=== PATIENT | male | born 1955 | race Caucasian/White ===

== ENCOUNTER 2021-03-01 11:37 | Inpatient (IN) | payer BC ==
[~2021-03-01] VITALS: Ht 182.9 cm; Wt 128.0 kg
[2021-03-01] MEDS ORDERED: CARV25TA PO (12:26)
[2021-03-01] MEDS ORDERED: MECL-149 PO (12:26)
[2021-03-01] MEDS ORDERED: ACHD5005 PO (12:26)
[2021-03-01] MEDS ORDERED: TRAM50TA3 PO (12:26)
[2021-03-01] MEDS ORDERED: ACET325T38 PO (12:26)
[2021-03-01] MEDS ORDERED: TMSL.4C PO (12:26)
[2021-03-01] MEDS ORDERED: LISI10TA25 PO (12:26)
[2021-03-01] MEDS ORDERED: HEPA500018 IJ (12:26)
[2021-03-01] MEDS ORDERED: AMLO-251 PO (12:26)
[2021-03-01 14:38] VITALS: BP 138/75
--- NOTE | 2021-03-01 15:42 | Progress Note ---
[facility] 03/01/21 1542: Progress Note CC: S/P Brain Bleed HPI: 65 yo male who is non-compliant with his HTN medications, presented to the [facility] ED for violent vomiting, and headache that had been lasting for 3 days. Patient was admitted to the hospital on Feb 21, and was discharged today, Mar 01. Patient reported that he did not receive any surgical intervention and was medically managed. Stated he has not had a bowel movement in over a week. Otherwise, patient reports feeling well, with no complaints. Denies fevers, chills, nausea, or vomiting PMH: HTN (non-compliant), Atrial Fibrillation PSH:.Tonsillectomy, Hemorrhoidectomy ALL: None Home Meds: Tylenol, Amlodipine, Carvedilol, Heparin, Hydrocodone-acetaminophen, lisinopril, Meclizine, Tamsulosin, Tramadol SH: Denies smoking, and recreational drugs, rarely drinks alcohol. 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 Stated he has been working since he was 13 yo. FH: Father - [place], Stroke. Mother - Lung cancer ROS: GENERAL: [place] Fevers, chills HEENT: Denies eye pain, ear pain RESP: denies Shortness of breath or cough HEART: [place] chest pain or palpitation ABDOMEN: Constipation, Denies abdominal pain, nausea, or vomiting EXTREMITIES: No calf pain or numbness EXAM: GENERAL: The patient is well-developed, well-nourished, in no acute distress. Obese HEENT: Normocephalic, atraumatic. Pupils are equal, round and reactive to light. Oropharynx is clear. NECK: Supple, with no lymphadenopathy. LUNGS: Clear to auscultation bilaterally. HEART: Regular rate and rhythm. ABDOMEN: Soft, nontender, nondistended. EXTREMITIES: Non-tender calves, no edema Assessment: S/P Brain bleed Constipation HTN Atrial fibrillation Plan Monitor BP (goal <140/<80) Continue BP medication Continue Heparin for Afib Miralax for constipation In Patient Rehab therapy Protocol Blood Sugars goal <180 CRYSTAL WEAVER DO 03/02/21 0544: Supervisory-Addendum Brief Verification & Attestation Participated in pt care: history, MDM, physical Personally performed: exam, history, MDM, supervision of care Care discussed with: Medical Student Procedures: n/a Results interpretation: Verified all documentation Verification and Attestation of Medical Student E/M Service A medical student performed and documented this service in my presence. I reviewed and verified all information documented by the medical student and made modifications to such information, when appropriate. I personally performed the physical exam and medical decision making. Crystal Weaver, Mar 02, 2021,05:44 [facility] Mar 01, 2021 15:42 CRYSTAL WEAVER DO Mar 02, 2021 05:44
--- NOTE | 2021-03-01 15:49 | Physical Therapy Evaluation ---
PT Evaluation-General Medical Diagnosis Admission Date Mar 01, 2021 at 14:53 Medical Diagnosis: ICH Onset Date: Feb 21, 2021 Therapy Diagnosis Therapy Diagnosis: impaired balance, mobility Precautions Precautions/Isolations: Fall Prevention, Standard Precautions Referral Physician: Crystal Armas DO Reason for Referral: Evaluation/Treatment Medical History Reviewed History: Yes Social History Home: Apartment Current Living Status: Alone Entry Into Home: Level Entry Prior Prior Level of Function SCALE: Activities may be completed with or without assistive devices. 6-Rstyjofcep-wodnexs completes the activity by him/herself with no assistance from a helper. 5-Set-up or Clean-up Assistance-helper sets up or cleans up; patient completes activity. [place] assists only prior to or following the activity. 4-Supervision or Touching Assistance-helper provides verbal cues and/or touching/steadying and/or contact guard assistance as patient completes activity. Assistance may be provided throughout the activity or intermittently. 3-Partial/Moderate Assistance-helper does LESS THAN HALF the effort. [place] lifts, holds or supports trunk or limbs, but provides less than half the effort. 2-Substantial/Maximal Assistance-helper does MORE THAN HALF the effort. [place] lifts or holds trunk or limbs and provides more than half the effort. 2-Yaondzbgr-pvbeuu does ALL the effort. Patient does none of the effort to complete the activity. Or, the assistance of 2 or more helpers is required for the patient to complete the activity. If activity was not attempted, code reason: 7-Patient Refused. 9-Not Applicable-not attempted and the patient did not perform the activity before the current illness, exacerbation or injury. 10-Not Attempted due to Environmental Limitations-(lack of equipment, weather restraints, etc.). 88-Not Attempted due to Medical Conditions or Safety Concerns. Bed Mobility: 6 Transfers (B,C,W/C): 6 Gait: 6 Stairs: 6 Indoor Mobility (Ambulation): Independent Stairs: Independent PT Evaluation-Current Subjective Patient in family vehicle pre tx, agrees to PT, has no pain currently but states that he now commonly has headaches. Will be co-treating with OT for part of tx due to poor patient mobility, impaired vision, coordinate UE and LE during activity, safety and reduce risk of falls. Pt/Family Goals to be independent at home Objective Patient Orientation: Person, Place, Situation ROM/Strength ROM Lower Extremities WNL Strength Lower Extremities grossly 5/5 BLE Neuromuscular (Tone, Coordination, Reflexes) Patient has impaired peripheral vision on the left side, good tracking, patient states he has a lot of blurry vision Sensory Vision: Hearing: Impaired Sensation Right Lower Extremit: Intact Sensation Left Lower Extremity: Intact Transfers Roll Left & Right (QC): 6 Sit to Lying (QC): 6 Lying to Sitting/Side of Bed(Q: 6 Sit to Stand (QC): 4 Chair/Hyb-rg-Rtyow Xfer(QC): 4 Toilet Transfer (QC): 4 Car Transfer (QC): 4 Patient performs rolling and supine <-> sit with independence, sit <-> stand and transfers with CGA, car transfer CGA. Occasional cues for safety and positioning due to visual impairments Gait Does the Patient Walk?: Yes Mode of Locomotion: Walk Anticipated Mode of Locomotion: Walk Walk 10 feet (QC): 4 Walk 50 ft with 2 Turns(QC): 4 Walk 150 ft (QC): 4 Walking 10ft/uneven surface-QC: 4 Distance: 300', 120' Gait Assistive Device: Cane Single Point Comments/Gait Description Patient can ambulate 300' with a single point cane with CGA (including 50' with at least 2 turns of 90 degrees and 10' over an uneven surface), occasional cues for obstacles on the left side Wheelchair Training Does the Pt Use a Wheelchair?: No Wheel 50 ft with 2 turns (QC): 9 Wheel 150 ft (QC): 9 Stairs #of Steps: 4 1 Step (curb) (QC): 4 4 Steps (QC): 4 12 Steps (QC): 88 Patient can go up and down 4 steps using 2 handrails with CGA, cues for safety and foot placement Balance Sitting Static: Normal Sitting Dynamic: Normal Standing Static: Good Standing Dynamic: Fair Picking up an Object (QC): 4 Special Test Comments Patient scored a 46/56 on the Reeves Balance Scale. Treatment PT performed bed mobility and transfers, ambulation, stair training, gait training, positioning and safety during dressing and ADL's, balance during cone activity (balance activity with cones while standing on airex), OT performed ADL's, dressing, balance activity, UE positioning and safety during activity. Assessment/Needs Patient in recliner post tx with nurse call, phone, tray, all needs met. Patient has impaired balance and mobility. He is CGA for transfers and ambulation using a SPC. Rehab Potential: Fair PT Short Term Goals Short Term Goals Time Frame: Mar 08, 2021 Roll Left & Right: 6 Sit to lyin Lying to sitting on side of be: 6 Sit to stand: 4 (SBA) Chair/hys-ks-yrogi transfer: 4 (SBA) Walk 10 feet: 4 (SBA) Walk 50 feet with two turns: 4 (SBA) Walk 150 feet: 4 (SBA) PT Financial Examiner Goals [facility] Goals PT Financial Examiner Goals Time Frame: Mar 22, 2021 Roll Left & Right (QC): 6 Sit to Lying (QC): 6 Lying-Sitting on Side/Bed(QC): 6 Sit to Stand (QC): 5 Chair/Rrt-bn-Vkzql Xfer(QC): 5 Toilet Transfer (QC): 5 Car Transfer (QC): 5 Does the Patient Walk: Yes Walk 10 feet (QC): 5 Walk 50ft with 2 Turns (QC): 5 Walk 150 ft (QC): 5 Walking 10ft on Uneven Surface: 5 1 Step (curb) (QC): 5 4 Steps (QC): 5 12 Steps (QC): 5 Picking up an Object (QC): 5 Wheel 50 feet with 2 turns (QC: 9 Wheel 150 feet: 9 PT Plan Problem List Problem List: Activity Tolerance, Functional Strength, Safety, Balance, Gait, Transfer, ROM Treatment/Plan Treatment Plan: Continue Plan of Care Treatment Plan: Education, Functional Activity Fer, Functional Strength, Group Therapy, Gait, Safety, Therapeutic Exercise, Transfers Treatment Duration: Mar 22, 2021 Frequency: At least 5 of 7 days/Wk (IRF) Estimated Hrs Per Day: 1.5 hours per day Patient and/or Family Agrees t: Yes Safety Risks/Education Patient Education: Gait Training, Transfer Techniques, Steps, Correct Positioning, Safety Issues Teaching Recipient: Patient Teaching Methods: Demonstration, Discussion Response to Teaching: Reinforcement Needed Discharge Recommendations Plan Patient will perform bed mobility and transfer training, balance and endurance training, functional strengthening, stair training, gait training, and education, to improve functional mobility and independence at home. Therapy Discharge Recommendati: Home & Family Time/GCodes Time In: 1415 Time Out: 1555 Total Billed Treatment Time: 90 Total Billed Treatment 1 visit EVL 10' NM 15' FA 65' PT eval [id number], OT eval [id number], co-treat [id number] RICARDO DYKES PT Mar 01, 2021 15:49
--- NOTE | 2021-03-01 15:51 | Occupational Therapy Eval ---
OT Evaluation-General/PLF Medical Diagnosis Admission Date Mar 01, 2021 at 14:53 Medical Diagnosis: Hemorrhagic stroke Onset Date: Feb 21, 2021 Therapy Diagnosis Therapy Diagnosis: Impaired endurance, vision Precautions Precautions/Isolations: Fall Prevention, Standard Precautions Referral Physician: Chanda Rosa Reason: Evaluation/Treatment Medical History Pertinent Medical History: HTN Current History Pt presents to ARU post hemorrhagic stroke. He reports living alone in an hat former apartment. 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 He was indep with adls and iadls. He reports he has groceries delivered and that he will have friends drive him if he needs to go anywhere. Pt was not using any AD prior to admission. Reviewed History: Yes Social History Home: Apartment Current Living Status: Alone Entry Into Home: Level Entry ADL-Prior Level of Function SCALE: Activities may be completed with or without assistive devices. 1-Nbhfrfacdr-uegowor completes the activity by him/herself with no assistance from a helper. 5-Set-up or Clean-up Assistance-helper sets up or cleans up; patient completes activity. [place] assists only prior to or following the activity. 4-Supervision or Touching Assistance-helper provides verbal cues and/or touching/steadying and/or contact guard assistance as patient completes activity. Assistance may be provided throughout the activity or intermittently. 3-Partial/Moderate Assistance-helper does LESS THAN HALF the effort. [place] lifts, holds or supports trunk or limbs, but provides less than half the effort. 2-Substantial/Maximal Assistance-helper does MORE THAN HALF the effort. [place] lifts or holds trunk or limbs and provides more than half the effort. 3-Xoenndtkj-kxxabs does ALL the effort. Patient does none of the effort to complete the activity. Or, the assistance of 2 or more helpers is required for the patient to complete the activity. If activity was not attempted, code reason: 7-Patient Refused. 9-Not Applicable-not attempted and the patient did not perform the activity before the current illness, exacerbation or injury. 10-Not Attempted due to Environmental Limitations-(lack of equipment, weather restraints, etc.). 88-Not Attempted due to Medical Conditions or Safety Concerns. Self Care: Independent Functional Cognition: Independent DME/Equipment: Grab Bars, Tub/Shower OT Current Status Subjective Denies pain, agreeable to treatment. Co-treat with PT for part of session due to needing 2 skilled clinicians to progress adls and higher level balance. Appearance Pt left sitting in recliner, all needs within reach at therapy departure. Mental Status/Objective Patient Orientation: Person, Place, Situation Current Glasses/Contacts: Yes Hearing Aids: No Dentures/Partials: No Hand Dominance: Right Upper Extremity ROM WNL Upper Extremity Strength WFL ADL-Treatment Eating (QC): 5 Oral Hygiene (QC): 5 Shower/Bathe Self (QC): 7 Upper Body Dressing (QC): 5 Lower Body Dressing (QC): 4 On/Off Footwear (QC): 4 Toileting Hygiene (QC): 4 Pt declined bathing, reports he took sponge bath prior to arrival. While sitting at EOB, he was able to don shirt with set up only. Extra time to thread bilateral feet into socks and pants but no assist required. He stood with SBA- CGA to manage pants over hips. He stood at sink for ~4 minutes to complete grooming tasks, close supervision-set up for safety. Other Treatments Pt participated in higher level balance tasks while standing on air-x foam. Mild unsteadiness when reaching for low heights, but no LOB. CGA for safety. Pt able to reach across midline and overhead without LOB; intermittent single UE support on parallel bar. He ambulated around unit; CGA without cane and close SBA with cane. SOA notable with exertion. Short seated rest breaks needed throughout. Letter cancellation test administered; score of 18/20 (90%). Errors in upper Left quadrant. Education and cues for scanning to compensate for peripheral vision loss. Pt did bump into objects on Left x2, cues for safety, no LOB. Education OT Patient Education: Correct positioning, Energy conservation, Modified ADL techniques, Purpose of tx/functional activities, Rehab process, Safety issues Teaching Recipient: Patient Teaching Methods: Discussion Response to Teaching: Verbalize Understanding, Return Demonstration OT Short Term Goals Short Term Goals Time Frame: Mar 08, 2021 Eatin Oral hygiene: 6 Toileting hygiene: 6 Shower/bathe self: 4 Upper body dressin Lower body dressin Putting on/taking off footwear: 5 OT Fdc Goals Fdc Goals Time Frame: Mar 12, 2021 Eating (QC): 6 Oral Hygiene (QC): 6 Toileting Hygiene (QC): 6 Shower/Bathe Self (QC): 6 Upper Body Dressing (QC): 6 Lower Body Dressing (QC): 6 On/Off Footwear (QC): 6 1=Demonstrate adherence to instructed precautions during ADL tasks. 2=Patient will verbalize/demonstrate understanding of assistive devices /modifications for ADL. 3=Patient will improve strength/tolerance for activity to enable patient to perform ADL's. OT Education/Plan Problem List/Assessment Assessment: Decreased Activ Tolerance, Decreased Safety Aware, Impaired I ADL's, Visual-Perceptual Deficit Discharge Recommendations Plan/Recommendations: Continue POC Therapy Discharge Recommendati: Home & Family Treatment Plan/Plan of Care Treatment,Training & Education: Yes Patient would benefit from OT for education, treatment and training to promote independence in ADL's, mobility, safety and/or upper extremity function for ADL's. Plan of Care: ADL Retraining, Functional Mobility, Group Exercise/Act as Ind, UE Funct Exercise/Act, Visual/Perceptual Retrain Treatment Duration: Mar 12, 2021 Frequency: At least 5 of 7 days/Wk (IRF) Estimated Hrs Per Day: 1.5 hours per day Agreement: Yes Time/GCodes Start Time: 14:25 Stop Time: 15:55 Total Time Billed (hr/min): 90 Billed Treatment Time 1 visit EVL (10 min) ADL x2 (30 min) FA x3 (50 min) Araceli Kennedy OT Mar 01, 2021 15:51
--- NOTE | 2021-03-01 18:08 | PM&R Post Admission Assessment ---
PM&R HP Date of Visit: Mar 01, 2021 Time of Visit: 18:30 History of Present Illness CC: Intracranial hemorrhage HPI: 65 year old WM pt of Dr. Calvo who presents from [facility] after a right intracranial hemorrhage which is stable. He did have a severe hypertensive episode likely the cause of the hemorrhage. MRI of brain in 3 months will be checked. He does have changes in bilateral vision and has a history of Covid pneumonia December 2020. History of hypertension, obesity, UTI, and bladder outlet obstruction and remains with a Lira catheter. 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 Current level of functioning is supervision for bed mobility and this will be a short stay, he will go home alone. H&P by Luis Lerner: CC: S/P Brain Bleed HPI: 65 yo male who is non-compliant with his HTN medications, presented to the [facility] ED for violent vomiting, and headache that had been lasting for 3 days. Patient was admitted to the hospital on Feb 21, and was discharged today, Mar 01. Patient reported that he did not receive any surgical intervention and was medically managed. Stated he has not had a bowel movement in over a week. Otherwise, patient reports feeling well, with no complaints. Denies fevers, chills, nausea, or vomiting PMH: HTN (non-compliant), Atrial Fibrillation PSH:.Tonsillectomy, Hemorrhoidectomy ALL: None Home Meds: Tylenol, Amlodipine, Carvedilol, Heparin, Hydrocodone-acetaminophen, lisinopril, Meclizine, Tamsulosin, Tramadol SH: Denies smoking, and recreational drugs, rarely drinks alcohol. 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 Stated he has been working since he was 13 yo. FH: Father - [place], Stroke. Mother - Lung cancer ROS: GENERAL: Deneis Fevers, chills HEENT: Denies eye pain, ear pain RESP: denies Shortness of breath or cough HEART: Deneis chest pain or palpitation ABDOMEN: Constipation, Denies abdominal pain, nausea, or vomiting EXTREMITIES: No calf pain or numbness EXAM: GENERAL: The patient is well-developed, well-nourished, in no acute distress. Obese HEENT: Normocephalic, atraumatic. Pupils are equal, round and reactive to light. Oropharynx is clear. NECK: Supple, with no lymphadenopathy. LUNGS: Clear to auscultation bilaterally. HEART: Regular rate and rhythm. ABDOMEN: Soft, nontender, nondistended. EXTREMITIES: Non-tender calves, no edema Assessment: S/P Brain bleed Constipation HTN Atrial fibrillation Plan Monitor BP (goal <140/<80) Continue BP medication Continue Heparin for Afib Miralax for constipation In Patient Rehab therapy Protocol Blood Sugars goal <180 Past Unyszyb-Mjsxeh-Yqprfm Hx Past Med/Social Hx: Reviewed Nursing Past Med/Soc Hx, Reviewed and Corrections made Patient Social History Marrital Status: single Employed/Student: employed Alcohol Use: Denies Use Smoking Status: Never a Smoker Past Medical History Cardiac: High Cholesterol, Hypertension Neurological: Stroke Genitourinary: Benign Prostatic Hyperpl Prior Level of Function Bed Mobility: 6 Transfers: 6 Gait: 6 Stairs: 6 Indoor Mobility (Ambulation): Independent Stairs: Independent Self Care: Independent Functional Cognition: Independent Current Level of Fuctioning Roll Left to Right: 6 Sit to Lyin Lying to Sitting/Side of Bed: 6 Sit to Stand: 4 Chair/Vuo-vg-Fohxf Xfer: 4 Car Transfer: 4 Does the Patient Walk: Yes Mode of Locomotion: Walk Anticipated Mode of Locomotion: Walk Walk 10 feet: 4 Walk 50 ft with 2 Turns: 4 Walk 150 ft: 4 Walking 10ft on uneven surface: 4 Gait Assistive Device: Cane Single Point Does the Pt Use a Wheelchair: No Wheel 50 ft with 2 turns: 9 Wheel 150 ft: 9 #of Steps: 4 1 Step (curb): 4 4 Steps: 4 12 Steps: 88 Picking up an Object: 4 Eatin Oral Hygiene: 5 Shower/Bathe Self: 7 Upper Body Dressin Lower Body Dressin On/Off Footwear: 4 Toileting Hygiene: 4 PM&R Allergy/Meds/Data Review Allergies Coded Allergies: No Known Drug Allergies (Unverified , 03/01/21) Home Medications Scheduled Amlodipine Besylate (Amlodipine Besylate), 10 MG PO DAILY, (Reported) Carvedilol (Carvedilol), 25 MG PO BID WITH MEALS, (Reported) Heparin Sodium,Porcine (Heparin Sodium), 5,000 UNIT IJ Q8H, (Reported) Lisinopril (Lisinopril), 10 MG PO BID, (Reported) Tamsulosin HCl (Flomax), 0.4 MG PO 1800 AFTER SUPPER, (Reported) Scheduled PRN Acetaminophen (Tylenol), 650 MG PO Q4H PRN for PAIN-MILD (1-4), (Reported) Hydrocodone/Acetaminophen (Hydrocodone-Acetamin 5-325 mg), 1 TAB PO Q4H PRN for PAIN-MODERATE (5-7), (Reported) Meclizine HCl (Meclizine HCl), 25 MG PO TID PRN for DIZZINESS, (Reported) Tramadol HCl (Tramadol HCl), 50 MG PO Q6H PRN for PAIN-MODERATE (5-7), (Reported) Current Medications Current Medications Reviewed Review of Systems Constitutional: see HPI, malaise, weakness EENTM: no symptoms reported Respiratory: no symptoms reported Cardiovascular: no symptoms reported Gastrointestinal: no symptoms reported Genitourinary: no symptoms reported Musculoskeletal: back pain Skin: no symptoms reported Psychiatric/Neurological: Headache, Weakness All Other Systems Reviewed Negative Unless Noted: Yes Physical Exam Physical Exam Vital Signs Vital Signs - First Documented 03/01/21 03/01/21 14:38 16:16 Temp 36.4 Pulse 77 Resp 20 B/P (MAP) 138/75 (96) Pulse Ox 97 O2 Delivery Room Air Capillary Refill : Height, Weight, BMI Height: '" Weight: lbs. oz. kg; BMI Method: General Appearance: No Apparent Distress, WD/WN, Chronically ill, Obese Eyes: Bilateral Eye Normal Inspection, Bilateral Eye PERRL HEENT: PERRL/EOMI, Normal ENT Inspection, Pharynx Normal, Other (left peripheral vision loss) Neck: Full Range of Motion, Normal Inspection, Non Tender, Supple, Carotid Bruit Respiratory: Chest Non Tender, Lungs Clear, Normal Breath Sounds, No Accessory Muscle Use, No Respiratory Distress Cardiovascular: Regular Rate, Rhythm, No Edema, No Gallop, No JVD, No Murmur, Normal Peripheral Pulses Gastrointestinal: Normal Bowel Sounds, No Organomegaly, No Pulsatile Mass, Non Tender, Soft Back: Normal Inspection, No CVA Tenderness, No Vertebral Tenderness Extremity: Normal Capillary Refill, Normal Inspection, Normal Range of Motion, Non Tender, No Calf Tenderness, No Pedal Edema Neurologic/Psychiatric: Alert, Oriented x3, No Motor/Sensory Deficits, welt beater II- XII Norm as Tested, Abnormal Gait, Depressed Affect, Motor Weakness (generalized) Skin: Normal Color, Warm/Dry Lymphatic: No Adenopathy PM&R Medical Assessment & Plan REHAB/MEDICAL ASSESSMENT AND PLAN: REHAB IMPAIRMENT GROUP: Intracranial hemorrhage ETIOLOGIC DIAGNOSIS: Intracranial hemorrhage The comorbidities that impact the patients function and/or functional outcome by: Increased BMI of 38, hypertension, fall risk, vision loss REHAB PLAN: The patient is being admitted to our comprehensive inpatient rehabilitation facility and can tolerate the intensity of service consisting of at least: 180 minutes of therapy a day, 5 out of 7 days a week Rehab treatment will consist of: PT and OT will focus on regaining function with use of assistive devices, fall risk prevention, LUCIO control The patient/family has a good understanding of our discharge process and will benefit from an interdisciplinary inpatient rehabilitation program. The patient has potential to make improvement and is in need of at least two of the following multidisciplinary therapies including but not limited to physical, occupational, speech, and prosthetics and orthotics. Additionally the patient will need services from respiratory, nutritional services, wound care, psychology, etc. (Customize this to each patient). Given the patients complex condition and risk of further medical complications, rehabilitation services cannot be safely or effectively provided at a lower level of care such as a shelter facility. BARRIERS TO DISCHARGE: Imbalance ESTIMATED LOS: 10 days DISPOSITION: Home RELEVANT CHANGES SINCE PREADMISSION SCREENING: I have compared the patients medical and functional status at the time of the preadmission screening and there are: no changes PROGNOSIS: Good REHABILITATION GOALS: 1. PT and OT will focus on regaining function with use of assistive devices, fall risk prevention, LUCIO control All the above goals were reviewed with the patient and he/she is in agreement. By signing this document, I acknowledge that I have personally performed a full physical examination on this patient within 24 hours of admission to this inpatient rehabilitation facility and have determined the patient to be able to tolerate the above course of treatment at an intensive level for a reasonable period of time. I will be completing a detailed individualized Plan of Care for this patient by day #4 of the patients stay based upon the Preadmission Screen, the Post-Admission Evaluation, and the therapy evaluations. Admission Dx/Comorbidities: (1) ICH (intracerebral hemorrhage) ICD Codes: I61.9 - Nontraumatic intracerebral hemorrhage, unspecified Assessment/Plan Assessment and Plan Assess & Plan/Chief Complaint Assessment: Intracranial hemorrhage Hypertension Increased BMI of 38 BPH Left peripheral vision loss Fall risk due to imbalance Plan: Hypertension control Lovenox Monitor closely ALEXA WEAVER DO Mar 01, 2021 18:08
[2021-03-01] MEDS ORDERED: LOPERAMIDE 2 MG (IMODIUM) TABLET PO PRN (18:15)
[2021-03-01] MEDS ORDERED: CALCIUM CARBONATE 500 MG (TUMS) TAB.CHEW PO PRN (18:15)
[2021-03-01] MEDS ORDERED: ACETAMINOPHEN 325 MG TABLET PO PRN ×2 (18:15)
[2021-03-01] MEDS ORDERED: ALPRAZolam 0.25 MG (XANAX) TAB PO PRN (18:15)
[2021-03-01] MEDS ORDERED: guaiFENesin/CODEINE (ROBITUSSIN AC) 10ML UDC PO PRN (18:15)
[2021-03-01] MEDS ORDERED: BISACODYL 10 MG SUPP (DULCOLAX) PR PRN (18:15)
[2021-03-01] MEDS ORDERED: LACTULOSE SYRUP 10GM/15ML (ENULOSE) 30ML UDC PO PRN (18:15)
[2021-03-01] MEDS ORDERED: MELATONIN 3 MG TABLET PO PRN (18:15)
[2021-03-01] MEDS ORDERED: diphenhydrAMINE 25 MG TAB (BENADRYL) PO PRN (18:15)
[2021-03-01] MEDS ORDERED: DOCUSATE SODIUM 100 MG (COLACE) CAP PO PRN (18:15)
[2021-03-01] MEDS ORDERED: ONDANSETRON 4 MG (ZOFRAN) ORAL DISSOLVE TAB PO PRN (18:15)
[2021-03-01] MEDS ORDERED: FLEET ENEMA ADULT 1 EA BTL PR PRN (18:15)
[2021-03-01] MEDS ORDERED: MECLIZINE 25 MG (ANTIVERT) TAB PO PRN (18:15)
[2021-03-01] MEDS: ENOXAPARIN 40 MG/0.4 ML (LOVENOX) SYR SC SCH (18:53)
[2021-03-01 19:49] VITALS: BP 118/73
[2021-03-01] MEDS: lisINopril 10 MG (PRINIVIL) TABLET PO SCH (20:33)
[2021-03-01] MEDS: HYDROcodone/APAP 5 MG/325 MG (LORTAB) TAB PO PRN (20:37)
[2021-03-01] MEDS: polyethylene glycoL POWDER 17 GM (MIRALAX) PACK PO SCH (20:54)
[2021-03-01] MEDS: SENNA W/DOCUSATE (SENOKOT S) TABLET PO SCH (20:54)
[2021-03-01] MEDS: DOCUSATE SODIUM 100 MG (COLACE) CAP PO SCH (20:54)
[2021-03-02 05:35] LABS: BASOPHILS # (AUTO) 0.1 10^3/uL (0.0-0.1); BASOPHILS % (AUTO) 1 % (0-10); EOSINOPHILS # (AUTO) 0.3 10^3/uL (0.0-0.3); EOSINOPHILS % (AUTO) 4 % (0-10); HEMATOCRIT 44 % (40-54); HEMOGLOBIN 14.5 g/dL (13.3-17.7); LYMPHOCYTES % (AUTO) 25 % (12-44); MEAN CORPUSCULAR HEMOGLOBIN 29 pg (25-34); MEAN CORPUSCULAR HGB CONC 33 g/dL (32-36); MEAN CORPUSCULAR VOLUME 87 fL (80-99); MEAN PLATELET VOLUME 10.1 fL (9.0-12.2); MONOCYTES % (AUTO) 12 % (0-12); NEUTROPHILS # (AUTO) 4.7 10^3/uL (1.8-7.8); NEUTROPHILS % (AUTO) 58 % (42-75); PLATELET COUNT 274 10^3/uL (130-400); WHITE BLOOD COUNT 8.1 10^3/uL (4.3-11.0)
[2021-03-02 05:55] LABS: ALBUMIN 3.6 GM/DL (3.2-4.5); BILIRUBIN,TOTAL 0.5 MG/DL (0.1-1.0); CALCIUM 8.9 MG/DL (8.5-10.1); CREATININE SERUM 1.21 MG/DL (0.60-1.30); TOTAL PROTEIN 6.9 GM/DL (6.4-8.2)
--- NOTE | 2021-03-02 06:49 | PM&R Progress Note ---
Subjective HPI/CC On Admission Date Seen by Provider: Mar 02, 2021 Time Seen by Provider: 09:00 Subjective/Events-last exam 03/02/2021: Pt is doing well Bowels are moving well Voiding well No pain is reported Home meds restarted Blood pressure stable Labs good Review of Systems General: Fatigue, Malaise Neurological: Weakness, Incoordination Objective Exam Vital Signs Vital Signs Date Time Temp Pulse Resp B/P (MAP) Pulse Ox O2 Delivery O2 Flow Rate FiO2 03/02/21 20:19 36.6 69 20 111/68 (82) 94 Room Air Capillary Refill : General Appearance: No Apparent Distress, WD/WN, Chronically ill, Obese HEENT: PERRL/EOMI, Normal ENT Inspection, Pharynx Normal, Other (left peripheral vision loss) Neck: Full Range of Motion, Normal Inspection, Non Tender, Supple, Carotid Bruit Respiratory: Chest Non Tender, Lungs Clear, Normal Breath Sounds, No Accessory Muscle Use, No Respiratory Distress Cardiovascular: Regular Rate, Rhythm, No Edema, No Gallop, No JVD, No Murmur, Normal Peripheral Pulses Gastrointestinal: Normal Bowel Sounds, No Organomegaly, No Pulsatile Mass, Non Tender, Soft Back: Normal Inspection, No CVA Tenderness, No Vertebral Tenderness Extremity: Normal Capillary Refill, Normal Inspection, Normal Range of Motion, Non Tender, No Calf Tenderness, No Pedal Edema Neurologic/Psychiatric: Alert, Oriented x3, No Motor/Sensory Deficits, basket mender II- XII Norm as Tested, Abnormal Gait, Depressed Affect, Motor Weakness (generalized) Skin: Normal Color, Warm/Dry Lymphatic: No Adenopathy Results/Procedures Lab Laboratory Tests 03/02/21 05:28 Patient resulted labs reviewed. FIM Transfers Therapy Code Descriptions/Definitions Functional [place] Measure: 0=Not Assessed/NA 4=Minimal Assistance 1=Total Assistance 5=Supervision or Setup 2=Maximal Assistance 6=Modified [place] 3=Moderate Assistance 7=Complete IndependenceSCALE: Activities may be completed with or without assistive devices. 4-Bsmhyetgez-xxhthds completes the activity by him/herself with no assistance from a helper. 5-Set-up or Clean-up Assistance-helper sets up or cleans up; patient completes activity. [place] assists only prior to or following the activity. 4-Supervision or Touching Assistance-helper provides verbal cues and/or touching/steadying and/or contact guard assistance as patient completes activity. Assistance may be provided throughout the activity or intermittently. 3-Partial/Moderate Assistance-helper does LESS THAN HALF the effort. [place] lifts, holds or supports trunk or limbs, but provides less than half the effort. 2-Substantial/Maximal Assistance-helper does MORE THAN HALF the effort. [place] lifts or holds trunk or limbs and provides more than half the effort. 3-Xfxzopwix-mvfrre does ALL the effort. Patient does none of the effort to complete the activity. Or, the assistance of 2 or more helpers is required for the patient to complete the activity. If activity was not attempted, code reason: 7-Patient Refused. 9-Not Applicable-not attempted and the patient did not perform the activity before the current illness, exacerbation or injury. 10-Not Attempted due to Environmental Limitations-(lack of equipment, weather restraints, etc.). 88-Not Attempted due to Medical Conditions or Safety Concerns. Roll Left to Right (QC): 6 Sit to Lying (QC): 6 Sit to Stand (QC): 4 Chair/Voj-wn-Irigl Xfer(QC): 4 Car Transfer (QC): 4 Gait Training Does the Patient Walk?: Yes Walk 10 feet (QC): 4 Walk 50 ft with 2 Turns(QC): 4 Walk 150 ft (QC): 4 Walking 10ft/uneven surface-QC: 4 Gait Assistive Device: Cane Single Point Wheelchair Training Does the Pt Use a Wheelchair?: No Wheel 50 ft with 2 turns (QC): 9 Wheel 150 ft (QC): 9 Stair Training #of Steps: 4 1 Step (curb) (QC): 4 4 Steps (QC): 4 12 Steps (QC): 88 Balance Picking up an Object (QC): 4 ADL-Treatment Eating (QC): 5 Oral Hygiene (QC): 5 Shower/Bathe Self (QC): 7 Upper Body Dressing (QC): 5 Lower Body Dressing (QC): 4 On/Off Footwear (QC): 4 Toileting Hygiene (QC): 4 Assessment/Plan Assessment and Plan Assess & Plan/Chief Complaint Assessment: Intracranial hemorrhage Hypertension Increased BMI of 38 BPH Left peripheral vision loss Fall risk due to imbalance Elevated liver enzymes Impaired fasting glucose Plan: Hypertension control Lovenox Monitor closely 03/02/2021: Supportive care Monitor blood pressure Fall risk (1) ICH (intracerebral hemorrhage) ALEXA WEAVER DO Mar 02, 2021 06:49
--- NOTE | 2021-03-02 06:49 | Individualized Plan of Care ---
Individualized Plan of Care Rehab Nursing IPOC Order Admission Date Mar 01, 2021 at 14:53 Current Orders Orders Admission Arrival Bed Request (03/01/21 14:24) Sodium 2g (2000 Mg) (03/01/21 Dinner) Acetaminophen Tablet/Caplet (Tylenol T (03/01/21 18:15) Amlodipine Tablet (Norvasc Tablet) (03/02/21 09:00) Hydrocodone/Apap 5/325 Tablet (Lortab 5 (03/01/21 18:15) Lisinopril Tablet (Zestril Tablet) (03/01/21 21:00) Meclizine Tablet (Antivert Tablet) (03/01/21 18:15) Tamsulosin Capsule (Flomax Capsule) (03/02/21 18:00) Rx-Tramadol Hcl (Rx-Ultram) (03/01/21 18:15) (Nf) Carvedilol (03/02/21 08:00) Admission Order(Inpt,Obs,Sdc) (03/01/21 18:05) Vital Signs: Per Unit Policy ( 08,16,00 (03/01/21 18:05) Danielito Hose 09,21 (03/01/21 18:05) Sequential Compression Device (03/01/21 18:05) Community Coordinator-Inpt Rehab Con (03/01/21 18:05) Rehab Nursing Orders-Ipoc (03/01/21 18:05) Physical Therapy Rehab Orders (03/01/21 18:05) Occupational Therapy Rehab Ord (03/01/21 18:05) Speech Therapy Rehab Orders (03/01/21 18:05) Cbc With Automated Diff (03/02/21 06:00) Comprehensive Metabolic Panel (03/02/21 06:00) Precautions (Aru) (03/01/21 18:05) Rehab-Intensity Of Therapy (03/01/21 18:05) Initiate Admission Nursing Pro .admission (03/01/21 18:05) Alprazolam Tablet (Xanax Tablet) (03/01/21 18:15) Calcium Carbonate Chew Tablet (Antacid C (03/01/21 18:15) Diphenhydramine Tablet (Benadryl Tablet) (03/01/21 18:15) Docusate Sodium Capsule (Colace Capsule) (03/01/21 21:00) Docusate Sodium Capsule (Colace Capsule) (03/01/21 18:15) Bisacodyl Suppository (Dulcolax Supposit (03/01/21 18:15) Lactulose Oral Solution (Enulose Oral So (03/01/21 18:15) Na Phos/Na Biphos Enema (Fleet Enema Uriel (03/01/21 18:15) Guaifenesin/Codeine Syrup (Robitussin Ac (03/01/21 18:15) Loperamide Tablet (Imodium Tablet) (03/01/21 18:15) Enoxaparin Injection (Lovenox Injectio (03/01/21 18:30) Melatonin Tablet (Melatonin Tablet) (03/01/21 18:15) Polyethylene Glycol Powder Pkt (Miralax (03/01/21 21:00) Ondansetron Oral Dissolve Tab (Zofran (03/01/21 18:15) Senna S Tablet (Senokot S Tablet) (03/01/21 21:00) Acetaminophen Tablet/Caplet (Tylenol T (03/01/21 18:15) Code/Resuscitation (03/01/21 18:05) Sequential Compression Device ONCE (03/01/21 18:05) Initiate Admission Nursing Pro .admission (03/01/21 18:05) Carvedilol Tablet (Coreg Tablet) (03/01/21 18:30) Tramadol Tablet (Ultram Tablet) (03/01/21 18:30) Patient Visit (03/01/21 ) Pt Eval Low Complexity (03/01/21 ) Ex Neuromuscular, Ea 15 Min (03/01/21 ) Functional Activities, Ea 15 (03/01/21 ) Patient Visit (03/02/21 ) Speech Sound Lang Comp (03/02/21 ) Treat. Speech/Lang/Voice (03/02/21 ) Patient Visit (03/02/21 ) Ex Neuromuscular, Ea 15 Min (03/02/21 ) Exercise Therap, Ea 15 Min (03/02/21 ) Gait Training, Ea 15 Min (03/02/21 ) Flu Quad High Dose [id number] (Fluzone Hi (03/02/21 17:15) Rehab Nursing Orders: Ongoing Assess. of Cognitive Status, Ongoing Assess. of Function Status, Bladder Management, Bladder Scan, Bladder Training, Bowel Management, Bowel Training, Disease Management & Educaiton, DVT Prophylaxis, Fall Prevention, Fluid/Electrolyte/Nutrition Mgmt, Infection Prevention, Medication Management & Education, Management of Risks & Complications, Management of Skin Intergrity, Nutrition Management, Pain Management, Patient/Family Support, Safety Management Intensity of Therapy to be met Patient to be seen: Min.3h per day/5 of 7d PT IPOC Problem List: Activity Tolerance, Functional Strength, Safety, Balance, Gait, Transfer, ROM Treatment Plan: Continue Plan of Care Education, Functional Activity Fer, Functional Strength, Group Therapy, Gait, Safety, Therapeutic Exercise, Transfers Treatment Duration: Mar 22, 2021 Frequency: At least 5 of 7 days/Wk (IRF) Estimated Hrs Per Day: 1.5 hours per day OT IPOC Problems: Decreased Activ Tolerance, Decreased Safety Aware, Impaired I ADL's, Visual-Perceptual Deficit OT Treatment, Training and Edu: Yes Plan of Care: ADL Retraining, Functional Mobility, Group Exercise/Act as Ind, UE Funct Exercise/Act, Visual/Perceptual Retrain Treatment Duration: Mar 12, 2021 Frequency: At least 5 of 7 days/Wk (IRF) Estimated Hrs Per Day: 1.[address] IPOC Speech Therapy Treatment Plan: Modify Plan, See Comments Treatment Duration: Mar 02, 2021 Frequency: Modified Program (IRF) Estimated Hrs Per Day: Other Community Coordinator/Case Mgmt Community Coordinator/Case Managemen: Discharge Planning Dietitian/Undergraduate Intern Dietitian/Undergraduate Intern to monitor nutritional status and make changes and/or recommendations as needed and work with speech pathology on dietary upgrades as the occur. Physician IPOC Medical Issues being managed closely and that require the 24 hour availability of a physician: Patient with recent hemorrhagic stroke will require close monitoring for any recurrence and monitor blood pressure closely to prevent recurrence Medical Issues: Bowel/Bladder Function, DVT Prophylaxis, Falls Precautions, Fluid/Electrolyte/Nutrition Balance, Infection Protection, Pain Management Brief Synthesis of Preadmission Screen, Post-Admission Evaluation, and Therapy Evaluations: PT and OT will focus on regaining function with assistive devices in order to accommodate the loss of left peripheral vision in addition to incoordination Medical Prognosis: Good Anticipated Length of Stay: 14 days ALEXA WEAVER DO Mar 02, 2021 06:49
[2021-03-02 07:54] VITALS: BP 129/66
[2021-03-02] MEDS: lisINopril 10 MG (PRINIVIL) TABLET PO SCH ×2 (07:56→20:13)
[2021-03-02] MEDS: amLODIPine 10 MG (NORVASC) TAB PO SCH (07:56)
[2021-03-02] MEDS ORDERED: NON-FORMULARY MEDICATION 1 EA EA (Carvedilol 25 MG) PO SCH (08:00)
[2021-03-02] MEDS: polyethylene glycoL POWDER 17 GM (MIRALAX) PACK PO SCH ×2 (09:00→19:28)
[2021-03-02] MEDS: DOCUSATE SODIUM 100 MG (COLACE) CAP PO SCH ×2 (09:00→19:28)
[2021-03-02] MEDS: SENNA W/DOCUSATE (SENOKOT S) TABLET PO SCH ×2 (09:00→19:28)
--- NOTE | 2021-03-02 09:09 | Occupational Ther Daily Note ---
OT Current Status-Daily Note Subjective Pt alert, sitting in recliner. Pt agrees to therapy. No c/o pain. Mental Status/Objective Patient Orientation: Person, Place, Time, Situation ADL-Treatment Pt fatigues easily and requires short recovery break throughout session. Pt agrees to shower. Pt has no other regular clothing and decides to use clothing that is already on instead of using ARU clothing. Using SPC, pt ambulates to bathroom with SBA for safety. Transfers into shower by self using grabbars. Completes shower with supervision for safety after education on set up of shower then pt completed. Pt able to doff/don clothing by self after clothing placed in reach. Pt stood at sink to complete oral care independently. Therapy Code Descriptions/Definitions Functional [place] Measure: 0=Not Assessed/NA 4=Minimal Assistance 1=Total Assistance 5=Supervision or Setup 2=Maximal Assistance 6=Modified [place] 3=Moderate Assistance 7=Complete IndependenceSCALE: Activities may be completed with or without assistive devices. 7-Sogctdyyqq-wztyjvm completes the activity by him/herself with no assistance from a helper. 5-Set-up or Clean-up Assistance-helper sets up or cleans up; patient completes activity. [place] assists only prior to or following the activity. 4-Supervision or Touching Assistance-helper provides verbal cues and/or touching/steadying and/or contact guard assistance as patient completes activity. Assistance may be provided throughout the activity or intermittently. 3-Partial/Moderate Assistance-helper does LESS THAN HALF the effort. [place] lift s, holds or supports trunk or limbs, but provides less than half the effort. 2-Substantial/Maximal Assistance-helper does MORE THAN HALF the effort. [place] lifts or holds trunk or limbs and provides more than half the effort. 1-Whquxwdys-zpyzyz does ALL the effort. Patient does none of the effort to complete the activity. Or, the assistance of 2 or more helpers is required for the patient to complete the activity. If activity was not attempted, code reason: 7-Patient Refused. 9-Not Applicable-not attempted and the patient did not perform the activity before the current illness, exacerbation or injury. 10-Not Attempted due to Environmental Limitations-(lack of equipment, weather restraints, etc.). 88-Not Attempted due to Medical Conditions or Safety Concerns. Eating (QC): 6 (Per clinical judgment, independent.) Oral Hygiene (QC): 6 Shower/Bathe Self (QC): 4 (supervision) Upper Body Dressing (QC): 5 Lower Body Dressing (QC): 5 On/Off Footwear: 5 Other Treatment Pt educated on HEP for B UE medium resistance theraband exercises. Skilled instruction for correct technique. Pt verbalized understanding of exercises due to increased fatigue after shower. Pt did attempt a few of the exercises to demonstrate understanding. Will have pt complete full HEP next treatment session. EOB to supine then position self in bed, independently. After session, pt lying in bed with call light/phone in reach. All needs met in room. OT Short Term Goals Short Term Goals Time Frame: Mar 08, 2021 Eatin Oral hygiene: 6 Toileting hygiene: 6 Shower/bathe self: 4 Upper body dressin Lower body dressin Putting on/taking off footwear: 5 OT Care Home Goals Care Home Goals Time Frame: Mar 12, 2021 Eating (QC): 6 Oral Hygiene (QC): 6 Toileting Hygiene (QC): 6 Shower/Bathe Self (QC): 6 Upper Body Dressing (QC): 6 Lower Body Dressing (QC): 6 On/Off Footwear (QC): 6 1=Demonstrate adherence to instructed precautions during ADL tasks. 2=Patient will verbalize/demonstrate understanding of assistive devices/modifications for ADL. 3=Patient will improve strength/tolerance for activity to enable patient to perform ADL's. OT Education/Plan Problem List/Assessment Assessment: Decreased Activ Tolerance, Decreased UE Strength, Impaired Self- Care Skills Discharge Recommendations Plan/Recommendations: Continue POC Treatment Plan/Plan of Care Patient would benefit from OT for education, treatment and training to promote independence in ADL's, mobility, safety and/or upper extremity function for ADL's. Plan of Care: ADL Retraining, Functional Mobility, Group Exercise/Act as Ind, UE Funct Exercise/Act, Visual/Perceptual Retrain Treatment Duration: Mar 12, 2021 Frequency: At least 5 of 7 days/Wk (IRF) Estimated Hrs Per Day: 1.5 hours per day Agreement: Yes Rehab Potential: Fair Time/GCodes Start Time: 08:00 Stop Time: 09:15 Total Time Billed (hr/min): 75 Billed Treatment Time 1 visit-ADL 4 (80 min) EX 1 (10 min) ROB CUI Mar 02, 2021 09:09
--- NOTE | 2021-03-02 11:08 | Physical Therapy Daily Note ---
PT Daily Note-Current Subjective Patient in bed pre tx, agrees to PT, has no complaints of pain. Appearance Patient in restroom post tx with nurse call. Mental Status Patient Orientation: Person, Place, Situation Transfers SCALE: Activities may be completed with or without assistive devices. 5-Hmkpcqyebq-uccjzag completes the activity by him/herself with no assistance from a helper. 5-Set-up or Clean-up Assistance-helper sets up or cleans up; patient completes activity. [place] assists only prior to or following the activity. 4-Supervision or Touching Assistance-helper provides verbal cues and/or touching/steadying and/or contact guard assistance as patient completes activity. Assistance may be provided throughout the activity or intermittently. 3-Partial/Moderate Assistance-helper does LESS THAN HALF the effort. [place] lifts, holds or supports trunk or limbs, but provides less than half the effort. 2-Substantial/Maximal Assistance-helper does MORE THAN HALF the effort. [place] lifts or holds trunk or limbs and provides more than half the effort. 8-Tppmubmjf-mecysq does ALL the effort. Patient does none of the effort to complete the activity. Or, the assistance of 2 or more helpers is required for the patient to complete the activity. If activity was not attempted, code reason: 7-Patient Refused. 9-Not Applicable-not attempted and the patient did not perform the activity be fore the current illness, exacerbation or injury. 10-Not Attempted due to Environmental Limitations-(lack of equipment, weather restraints, etc.). 88-Not Attempted due to Medical Conditions or Safety Concerns. Roll Left & Right (QC): 6 Sit to Lying (QC): 6 Lying to Sitting/Side of Bed(Q: 6 Sit to Stand (QC): 4 Chair/Yzu-hn-Aijmj Xfer(QC): 4 Toilet Transfer (QC): 4 Patient SBA with transfers, needs occasional cues for direction Gait Training Distance: 800', 120' Walk 10 feet (QC): 4 Walk 50 ft with 2 Turns(QC): 4 Walk 150 ft (QC): 4 Gait Assistive Device: Cane Single Point SBA, slow but steady ambulation, occasional cue for direction Exercises Standing: Heel/toe raises Standing Reps: 15 LAQ alternating for 5 min with 2# ankle weights NuStep Minutes: 15 NuStep Workload: 5 Neuromuscular mini-squats on airex x15, marching on airex x15, step-ups on airex x15, sidestepping 20'x2, braiding 20'x2, tandem walking 20'x2, activity walking and locating cones in hard to reach places Treatments transfers, ambulation, balance training, functional strengthening Assessment Current Status: Fair Progress better job scanning to the left side PT Short Term Goals Short Term Goals Time Frame: Mar 08, 2021 Roll Left & Right: 6 Sit to lyin Lying to sitting on side of be: 6 Sit to stand: 4 (SBA) Chair/sbm-du-ozblv transfer: 4 (SBA) Walk 10 feet: 4 (SBA) Walk 50 feet with two turns: 4 (SBA) Walk 150 feet: 4 (SBA) PT Alf Goals Alf Goals PT Conservation Officer Goals Time Frame: Mar 22, 2021 Roll Left & Right (QC): 6 Sit to Lying (QC): 6 Lying-Sitting on Side/Bed(QC): 6 Sit to Stand (QC): 5 Chair/Iir-gm-Keygv Xfer(QC): 5 Toilet Transfer (QC): 5 Car Transfer (QC): 5 Does the Patient Walk: Yes Walk 10 feet (QC): 5 Walk 50ft with 2 Turns (QC): 5 Walk 150 ft (QC): 5 Walking 10ft on Uneven Surface: 5 1 Step (curb) (QC): 5 4 Steps (QC): 5 12 Steps (QC): 5 Picking up an Object (QC): 5 Wheel 50 feet with 2 turns (QC: 9 Wheel 150 feet: 9 PT Plan Problem List Problem List: Activity Tolerance, Functional Strength, Safety, Balance, Gait, Transfer, ROM Treatment/Plan Treatment Plan: Continue Plan of Care Treatment Plan: Education, Functional Activity Fer, Functional Strength, Group Therapy, Gait, Safety, Therapeutic Exercise, Transfers Treatment Duration: Mar 22, 2021 Frequency: At least 5 of 7 days/Wk (IRF) Estimated Hrs Per Day: 1.5 hours per day Patient and/or Family Agrees t: Yes Safety Risks/Education Patient Education: Gait Training, Transfer Techniques, Correct Positioning, Safety Issues Teaching Recipient: Patient Teaching Methods: Demonstration, Discussion Response to Teaching: Reinforcement Needed Time/GCodes Time In: 1000 Time Out: 1115 Total Billed Treatment Time: 75 Total Billed Treatment 1 visit NM 15' GT 30' EX 30' RICARDO DYKES PT Mar 02, 2021 11:07
--- NOTE | 2021-03-02 12:38 | ST Cognitive Linguistic Eval ---
Speech Evaluation-General Medical Diagnosis Hemorrhagic Stroke Onset Date: Feb 21, 2021 Therapy Diagnosis Therapy Diagnosis: Cognitive Linguistic Skills WNL Precautions Precautions: Fall Precautions/Isolations: Standard Precautions Referral Referring Physician: Dr. Crystal Armas Reason for Referral: Evaluation/Treatment Medical History Pertinent Medical History: HTN Current History The patient is a 65 year-old male with a past medical history of HTN and atrial fibrillation, who presented to [facility] by transfer from [facility] following a right intracranial hemorrhage. Reviewed History: Yes Social History Current Living Status: Alone Speech PLF-Current Status Prior Level of Function The patient reported independent completion of all ADL's prior to admission. Subjective The patient was seated upright in bed, awake and alert upon entrance by the clinician. The patient greeted the clinician appropriately and was agreeable to participation in the cognitive linguistic assessment. The patient stated he has not experienced a change or concern with his language, speech, or cognition. Per patient, his largest area of concern is his vision. The patient reports loss of his left peripheral vision and states, "it's all blurry." Language Eval: Auditory Comprehends Simple Yes/No Ques: Functional Indent/Objects Multiple [place]: Functional Ident/Pics in Multiple [place]her: Functional Follows 1-Step Commands: Functional Follows Complex Directions: Functional Follows General Conversations: Functional Language Eval: Verbal Language Completes Spontaneous Greeting: Functional Produces Auto, Serial Info: Functional Imitates Simple Words/Phrases: Functional Word Finding: Functional Requests Basic Needs: Functional States Basic Personal Info: Functional Expresses Complex Ideas: Functional Language Evaluation: Reading Follows Simple Written Direct: Functional Language Evaluation: Writing Writes to Simple Dictation: Functional Cognitive Patient Orientation The patient was independently oriented to self, location, month, date, and year. Objective Cognitive Domain Attention: WNL Memory: WNL Problem Solving: Functional Executive Functions: WNL Composite Severity Rating: WNL Clock Drawing Severity Rating: WN Objective Formal/Standardized Tests [facility] Mental Status Results The patient demonstrated a score of +28/30 on the SLUMS correlating with cognition within normal limits. Oral Motor/Speech Production The patient does not display dysarthria or apraxia of speech. The patient remains 100% intelligible in known and unknown contexts. Impression The patient is a 65 year old male who presents with cognitive linguistic skills within normal limits. The patient displayed an error while repeating four digits backwards and was able to name 11 animals within one minute (WNL=15). Speech Patient Assess Expression of Ideas/Wants: Exhibits (3) Understanding Verbal Content: Usually Understands (3) Brief Interview-Mental Status: Yes Repetition of Three Words: Three (3) Temporal Orientation: Year: Correct (3) Temporal Orientation: Month: Accurate within 5 days(2) Temporal Orientation: Day: Correct (1) Recall : Wear to say "Sock": Yes, no cue required (2) Recall : Color: Yes, no cue required (2) Recall : Bed: Yes, no cue required (2) Memory/Recall Ability: Current season, Staff names and faces, That he or she is in a hsp/hsp unit Speech-Plan Treatment Plan Speech Therapy Treatment Plan: Discontinue ST Frequency: 1 time per week Estimated Hrs Per Day: .5 hour per day Rehab Potential: Fair Pt/Family Agrees to Plan: Yes Safety Risks/Education Teaching Recipient: Patient Teaching Methods: Discussion Response to Teaching: Verbalize Understanding Education Topics Provided: Results of KILLIAN, Plan of Care Time Speech Therapy Time In: 09:30 Speech Therapy Time Out: 10:00 Total Billed Time: 30 Billed Treatment Time 1, KRYSTINA ROQUE [facility] ST Mar 02, 2021 12:38
[2021-03-02] MEDS ORDERED: FLU QUAD HIGH DOSE 240 MCG/0.7 ML 2021-22 (FLUZONE) IM ONE (17:15)
[2021-03-02] MEDS: TAMSULOSIN 0.4 MG (FLOMAX) CAP PO SCH (17:44)
[2021-03-02 17:45] VITALS: BP 116/60
[2021-03-02] MEDS: ENOXAPARIN 40 MG/0.4 ML (LOVENOX) SYR SC SCH (17:45)
[2021-03-02] MEDS: HYDROcodone/APAP 5 MG/325 MG (LORTAB) TAB PO PRN (20:13)
[2021-03-02 20:19] VITALS: BP 111/68
--- NOTE | 2021-03-03 05:52 | PM&R Progress Note ---
Subjective HPI/CC On Admission Date Seen by Provider: Mar 03, 2021 Time Seen by Provider: 09:00 Subjective/Events-last exam 03/03/2021: Pt doing pretty well Bowels are moving Took one more tab for the headache Balance is improved 03/02/2021: Pt is doing well Bowels are moving well Voiding well No pain is reported Home meds restarted Blood pressure stable Labs good Review of Systems General: Fatigue, Malaise Neurological: Weakness, Incoordination Objective Exam Vital Signs Vital Signs Date Time Temp Pulse Resp B/P (MAP) Pulse Ox O2 Delivery O2 Flow Rate FiO2 03/03/21 20:56 36.2 67 20 119/62 (81) 96 Room Air Capillary Refill : General Appearance: No Apparent Distress, WD/WN, Chronically ill, Obese HEENT: PERRL/EOMI, Normal ENT Inspection, Pharynx Normal, Other (left peripheral vision loss) Neck: Full Range of Motion, Normal Inspection, Non Tender, Supple, Carotid Bruit Respiratory: Chest Non Tender, Lungs Clear, Normal Breath Sounds, No Accessory Muscle Use, No Respiratory Distress Cardiovascular: Regular Rate, Rhythm, No Edema, No Gallop, No JVD, No Murmur, Normal Peripheral Pulses Gastrointestinal: Normal Bowel Sounds, No Organomegaly, No Pulsatile Mass, Non Tender, Soft Back: Normal Inspection, No CVA Tenderness, No Vertebral Tenderness Extremity: Normal Capillary Refill, Normal Inspection, Normal Range of Motion, Non Tender, No Calf Tenderness, No Pedal Edema Neurologic/Psychiatric: Alert, Oriented x3, No Motor/Sensory Deficits, 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 FIM Transfers Therapy Code Descriptions/Definitions Functional [place] Measure: 0=Not Assessed/NA 4=Minimal Assistance 1=Total Assistance 5=Supervision or Setup 2=Maximal Assistance 6=Modified [place] 3=Moderate Assistance 7=Complete IndependenceSCALE: Activities may be completed with or without assistive devices. 3-Swmpqbqnzn-kesixhl completes the activity by him/herself with no assistance from a helper. 5-Set-up or Clean-up Assistance-helper sets up or cleans up; patient completes activity. [place] assists only prior to or following the activity. 4-Supervision or Touching Assistance-helper provides verbal cues and/or touching/steadying and/or contact guard assistance as patient completes activity. Assistance may be provided throughout the activity or intermittently. 3-Partial/Moderate Assistance-helper does LESS THAN HALF the effort. [place] lifts, holds or supports trunk or limbs, but provides less than half the effort. 2-Substantial/Maximal Assistance-helper does MORE THAN HALF the effort. [place] lifts or holds trunk or limbs and provides more than half the effort. 1-Vbydrytyt-vocrjj does ALL the effort. Patient does none of the effort to complete the activity. Or, the assistance of 2 or more helpers is required for the patient to complete the activity. If activity was not attempted, code reason: 7-Patient Refused. 9-Not Applicable-not attempted and the patient did not perform the activity be fore the current illness, exacerbation or injury. 10-Not Attempted due to Environmental Limitations-(lack of equipment, weather restraints, etc.). 88-Not Attempted due to Medical Conditions or Safety Concerns. Roll Left to Right (QC): 6 Sit to Lying (QC): 6 Sit to Stand (QC): 4 Chair/Kjb-dq-Lcpat Xfer(QC): 4 Car Transfer (QC): 4 Gait Training Does the Patient Walk?: Yes Distance: 800', 120' Walk 10 feet (QC): 4 Walk 50 ft with 2 Turns(QC): 4 Walk 150 ft (QC): 4 Walking 10ft/uneven surface-QC: 4 Gait Assistive Device: Cane Single Point Wheelchair Training Does the Pt Use a Wheelchair?: No Wheel 50 ft with 2 turns (QC): 9 Wheel 150 ft (QC): 9 Stair Training #of Steps: 4 1 Step (curb) (QC): 4 4 Steps (QC): 4 12 Steps (QC): 88 Balance Picking up an Object (QC): 4 ADL-Treatment Eating (QC): 6 (Per clinical judgment, independent.) Oral Hygiene (QC): 6 Shower/Bathe Self (QC): 4 (supervision) Upper Body Dressing (QC): 5 Lower Body Dressing (QC): 5 On/Off Footwear (QC): 5 Toileting Hygiene (QC): 4 Assessment/Plan Assessment and Plan Assess & Plan/Chief Complaint Assessment: Intracranial hemorrhage Hypertension Increased BMI of 38 BPH Left peripheral vision loss Fall risk due to imbalance Elevated liver enzymes Impaired fasting glucose Plan: Hypertension control Lovenox Monitor closely 03/02/2021: Supportive care Monitor blood pressure Fall risk 03/03/2021: Dramatic improvement in balance Supportive care (1) ICH (intracerebral hemorrhage) ALEXA WEAVER DO Mar 03, 2021 05:52
[2021-03-03] MEDS: lisINopril 10 MG (PRINIVIL) TABLET PO SCH ×2 (07:40→20:26)
[2021-03-03] MEDS: amLODIPine 10 MG (NORVASC) TAB PO SCH (07:40)
[2021-03-03 07:44] VITALS: BP 124/60
[2021-03-03] MEDS: polyethylene glycoL POWDER 17 GM (MIRALAX) PACK PO SCH ×2 (09:00→20:15)
[2021-03-03] MEDS: DOCUSATE SODIUM 100 MG (COLACE) CAP PO SCH ×2 (09:00→20:15)
[2021-03-03] MEDS: SENNA W/DOCUSATE (SENOKOT S) TABLET PO SCH ×2 (09:00→20:15)
--- NOTE | 2021-03-03 09:04 | Occupational Ther Daily Note ---
OT Current Status-Daily Note Subjective Pt alert, lying in bed. Pt agrees to therapy. No c/o pain. Mental Status/Objective Patient Orientation: Person, Place, Time, Situation ADL-Treatment Pt declines shower today. Independent with bed mobility. Ambulated to SPC to bathroom with SBA no LOB. Stood at sink to complete grooming and oral care independently. Nrsg in room to give pt meds. Therapy Code Descriptions/Definitions Functional [place] Measure: 0=Not Assessed/NA 4=Minimal Assistance 1=Total Assistance 5=Supervision or Setup 2=Maximal Assistance 6=Modified [place] 3=Moderate Assistance 7=Complete IndependenceSCALE: Activities may be completed with or without assistive devices. 7-Goyecpzbeu-ngrvrnt completes the activity by him/herself with no assistance from a helper. 5-Set-up or Clean-up Assistance-helper sets up or cleans up; patient completes activity. [place] assists only prior to or following the activity. 4-Supervision or Touching Assistance-helper provides verbal cues and/or touching/steadying and/or contact guard assistance as patient completes activity. Assistance may be provided throughout the activity or intermittently. 3-Partial/Moderate Assistance-helper does LESS THAN HALF the effort. [place] lifts, holds or supports trunk or limbs, but provides less than half the effort. 2-Substantial/Maximal Assistance-helper does MORE THAN HALF the effort. [place] lifts or holds trunk or limbs and provides more than half the effort. 3-Gpmoqknii-nklhgh does ALL the effort. Patient does none of the effort to complete the activity. Or, the assistance of 2 or more helpers is required for the patient to complete the activity. If activity was not attempted, code reason: 7-Patient Refused. 9-Not Applicable-not attempted and the patient did not perform the activity before the current illness, exacerbation or injury. 10-Not Attempted due to Environmental Limitations-(lack of equipment, weather restraints, etc.). 88-Not Attempted due to Medical Conditions or Safety Concerns. Oral Hygiene (QC): 6 Other Treatment Sitting on EOB pt completed 8 B UE medium resistance theraband exercises. Skilled instruction required for correct tech. Pt able to complete with only visual cues for reminder on correct technique. Pt then ambulated using SPC to central bathing to work on tub transfers. Pt has no grabbars or tub seat at home. Pt able to demonstrate step in/out tub transfer with only SBA for safety, no LOB. Then ambulated using SPC to therapy gym to work on visual perceptual B UE gross/fine motor tasks. Pt has slight visual cut on lower left quadrant. Pt able to compensate by scanning with minimal lag on completing task. After session, pt lying in bed with call light/phone in reach. All needs met in room. OT Short Term Goals Short Term Goals Time Frame: Mar 08, 2021 Eatin Oral hygiene: 6 Toileting hygiene: 6 Shower/bathe self: 4 Upper body dressin Lower body dressin Putting on/taking off footwear: 5 OT Jail Goals Stump Shooter Goals Time Frame: Mar 12, 2021 Eating (QC): 6 Oral Hygiene (QC): 6 Toileting Hygiene (QC): 6 Shower/Bathe Self (QC): 6 Upper Body Dressing (QC): 6 Lower Body Dressing (QC): 6 On/Off Footwear (QC): 6 1=Demonstrate adherence to instructed precautions during ADL tasks. 2=Patient will verbalize/demonstrate understanding of assistive devices/modifications for ADL. 3=Patient will improve strength/tolerance for activity to enable patient to perform ADL's. OT Education/Plan Problem List/Assessment Assessment: Decreased Activ Tolerance, Impaired Funct Balance, Impaired Self- Care Skills, Visual-Perceptual Deficit Discharge Recommendations Plan/Recommendations: Continue POC Treatment Plan/Plan of Care Patient would benefit from OT for education, treatment and training to promote independence in ADL's, mobility, safety and/or upper extremity function for ADL 's. Plan of Care: ADL Retraining, Functional Mobility, Group Exercise/Act as Ind, UE Funct Exercise/Act, Visual/Perceptual Retrain Treatment Duration: Mar 12, 2021 Frequency: At least 5 of 7 days/Wk (IRF) Estimated Hrs Per Day: 1.5 hours per day Agreement: Yes Rehab Potential: Fair Time/GCodes Start Time: 07:30 Stop Time: 09:00 Total Time Billed (hr/min): 90 Billed Treatment Time 1 visit-ADL 3 (40 min) NM 3 (50 min) ROB CUI Mar 03, 2021 09:04
--- NOTE | 2021-03-03 12:06 | Physical Therapy Daily Note ---
PT Daily Note-Current Subjective Pt. agrees to Rx. Explains his job situation and that his vision is his biggest concern at this point. No pain c/o , occas slight dizziness. Pt. states he would rather not use a cane if he doesnt need it and hopes to be up ad irene soon Mental Status Patient Orientation: Normal For Age Transfers SCALE: Activities may be completed with or without assistive devices. 2-Odfcxwvphc-cuasmyx completes the activity by him/herself with no assistance from a helper. 5-Set-up or Clean-up Assistance-helper sets up or cleans up; patient completes activity. [place] assists only prior to or following the activity. 4-Supervision or Touching Assistance-helper provides verbal cues and/or touching/steadying and/or contact guard assistance as patient completes activit y. Assistance may be provided throughout the activity or intermittently. 3-Partial/Moderate Assistance-helper does LESS THAN HALF the effort. [place] lifts, holds or supports trunk or limbs, but provides less than half the effort. 2-Substantial/Maximal Assistance-helper does MORE THAN HALF the effort. [place] lifts or holds trunk or limbs and provides more than half the effort. 2-Kvbemigjn-pibkyi does ALL the effort. Patient does none of the effort to complete the activity. Or, the assistance of 2 or more helpers is required for the patient to complete the activity. If activity was not attempted, code reason: 7-Patient Refused. 9-Not Applicable-not attempted and the patient did not perform the activity before the current illness, exacerbation or injury. 10-Not Attempted due to Environmental Limitations-(lack of equipment, weather restraints, etc.). 88-Not Attempted due to Medical Conditions or Safety Concerns. Roll Left & Right (QC): 6 Sit to Lying (QC): 6 Lying to Sitting/Side of Bed(Q: 6 Sit to Stand (QC): 6 Chair/Brf-wm-Rdmsr Xfer(QC): 6 Toilet Transfer (QC): 6 Gait Training Does the Patient Walk?: Yes Walk 10 feet (QC): 6 Walk 50 ft with 2 Turns(QC): 6 Walk 150 ft (QC): 6 Gait Persons Needed: 0 Gait Assistive Device: None RAMIREZ completed with 54/56 score = no device needed Balance Special Test Comments 54/56 on RAMIREZ with LOB only occurring with SLS after 7 seconds on right foot. Pt. also can only turn head/trunk partial to side. all other scores at 4 Exercises Supine Ex: Bridging, Rolling, Scooting, Straight leg raise, Hip abd/add (sidel alpa) Supine Reps: 12 NuStep Minutes: 10 NuStep Workload: 4 Neuromuscular RAMIREZ test 54/6 Treatments gait, TRFs, RAMIREZ balance test, toileting, quadruped , crawling, tall on knees, all indep, no issues Assessment Current Status: Good Progress PT Short Term Goals Short Term Goals Time Frame: Mar 08, 2021 Roll Left & Right: 6 Sit to lyin Lying to sitting on side of be: 6 Sit to stand: 4 (SBA) Chair/sml-nq-ioeoj transfer: 4 (SBA) Walk 10 feet: 4 (SBA) Walk 50 feet with two turns: 4 (SBA) Walk 150 feet: 4 (SBA) PT Assistant Statistician Goals Assistant Statistician Goals PT Half-Way Goals Time Frame: Mar 22, 2021 Roll Left & Right (QC): 6 Sit to Lying (QC): 6 Lying-Sitting on Side/Bed(QC): 6 Sit to Stand (QC): 5 Chair/Lua-tv-Erniv Xfer(QC): 5 Toilet Transfer (QC): 5 Car Transfer (QC): 5 Does the Patient Walk: Yes Walk 10 feet (QC): 5 Walk 50ft with 2 Turns (QC): 5 Walk 150 ft (QC): 5 Walking 10ft on Uneven Surface: 5 1 Step (curb) (QC): 5 4 Steps (QC): 5 12 Steps (QC): 5 Picking up an Object (QC): 5 Wheel 50 feet with 2 turns (QC: 9 Wheel 150 feet: 9 PT Plan Treatment/Plan Treatment Plan: Continue Plan of Care Treatment Plan: Education, Functional Activity Fer, Functional Strength, Group Therapy, Gait, Safety, Therapeutic Exercise, Transfers Treatment Duration: Mar 22, 2021 Frequency: At least 5 of 7 days/Wk (IRF) Estimated Hrs Per Day: 1.5 hours per day Patient and/or Family Agrees t: Yes Safety Risks/Education Patient Education: Gait Training, Transfer Techniques, Reviewed Precautions, Disease Process, Safety Issues Teaching Recipient: Patient Teaching Methods: Demonstration, Discussion Response to Teaching: Verbalize Understanding, Return Demonstration Time/GCodes Time In: 1105 Time Out: 1205 Total Billed Treatment Time: 60 Total Billed Treatment 1,NM25m,EX20m,GT15m MAYA JENNINGS ENVIRONMENTAL RESEARCH SCIENTIST Mar 03, 2021 12:06
--- NOTE | 2021-03-03 13:42 | Physical Therapy Daily Note ---
PT Daily Note-Current Subjective Pt. agrees to Rx. States he was very sedentary prior to this admission. Works from home on computer. Pain Location: No Pain Reported Mental Status Patient Orientation: Normal For Age Transfers SCALE: Activities may be completed with or without assistive devices. 8-Aiqovjsfzv-mzkmmox completes the activity by him/herself with no assistance from a helper. 5-Set-up or Clean-up Assistance-helper sets up or cleans up; patient completes activity. [place] assists only prior to or following the activity. 4-Supervision or Touching Assistance-helper provides verbal cues and/or touchi ng/steadying and/or contact guard assistance as patient completes activity. Assistance may be provided throughout the activity or intermittently. 3-Partial/Moderate Assistance-helper does LESS THAN HALF the effort. [place] lifts, holds or supports trunk or limbs, but provides less than half the effort. 2-Substantial/Maximal Assistance-helper does MORE THAN HALF the effort. [place] lifts or holds trunk or limbs and provides more than half the effort. 6-Ygftfpqqs-jwigfy does ALL the effort. Patient does none of the effort to complete the activity. Or, the assistance of 2 or more helpers is required for the patient to complete the activity. If activity was not attempted, code reason: 7-Patient Refused. 9-Not Applicable-not attempted and the patient did not perform the activity before the current illness, exacerbation or injury. 10-Not Attempted due to Environmental Limitations-(lack of equipment, weather restraints, etc.). 88-Not Attempted due to Medical Conditions or Safety Concerns. bed, chair TRFs mod I, floor TRF was trialed this Tx with mod I : Tx table to cushion on floor to quadruped to prone to quadruped , crawled to Tx table for stability and stood using RLE as pushing limb, sat on Tx table. Gait Training Gait Assistive Device: None pt. ambulated 150 ft x 2, pts left visual field causing issues as pt. needed guided even in repeated areas. no LOB, no incident except that pt. does need guided repeatedly Stair Training Stair Training: Handrails/: 1 handrail #of Steps: 12 4 Steps (QC): 6 12 Steps (QC): 6 Stairs: Pattern: Reciprocal Exercises Standing: Hip Abduction, Hamstring curls, Heel/toe raises, Marching, Mini squats Standing Reps: 8 pt. was encouraged to do standing exercises without holding to //bars . pt. was able to do this but was dyspneic very quickly and commented that this Tx wore him out. Treatments floor transfer, 12 steps, standing exercise for balance, gait training PT Short Term Goals Short Term Goals Time Frame: Mar 08, 2021 Roll Left & Right: 6 Sit to lyin Lying to sitting on side of be: 6 Sit to stand: 4 (SBA) Chair/qsj-ul-hnblt transfer: 4 (SBA) Walk 10 feet: 4 (SBA) Walk 50 feet with two turns: 4 (SBA) Walk 150 feet: 4 (SBA) PT Machine Pecan Gatherer Goals Fdc Goals PT Machine Pecan Gatherer Goals Time Frame: Mar 22, 2021 Roll Left & Right (QC): 6 Sit to Lying (QC): 6 Lying-Sitting on Side/Bed(QC): 6 Sit to Stand (QC): 5 Chair/Too-jd-Vnixu Xfer(QC): 5 Toilet Transfer (QC): 5 Car Transfer (QC): 5 Does the Patient Walk: Yes Walk 10 feet (QC): 5 Walk 50ft with 2 Turns (QC): 5 Walk 150 ft (QC): 5 Walking 10ft on Uneven Surface: 5 1 Step (curb) (QC): 5 4 Steps (QC): 5 12 Steps (QC): 5 Picking up an Object (QC): 5 Wheel 50 feet with 2 turns (QC: 9 Wheel 150 feet: 9 PT Plan Treatment/Plan Treatment Plan: Continue Plan of Care Treatment Plan: Education, Functional Activity Fer, Functional Strength, Group Therapy, Gait, Safety, Therapeutic Exercise, Transfers Treatment Duration: Mar 22, 2021 Frequency: At least 5 of 7 days/Wk (IRF) Estimated Hrs Per Day: 1.5 hours per day Patient and/or Family Agrees t: Yes Safety Risks/Education Patient Education: Gait Training, Transfer Techniques, Steps, Correct Positioning, Disease Process, Safety Issues Teaching Recipient: Patient Teaching Methods: Demonstration, Discussion Response to Teaching: Verbalize Understanding, Return Demonstration, Reinforcement Needed Time/GCodes Time In: 1315 Time Out: 1345 Total Billed Treatment Time: 30 Total Billed Treatment 1,FA15m,EX15m MAYA JENNINGS PARACHUTIST/COMBATANT DIVER QUALIFIED Mar 03, 2021 13:42
[2021-03-03 17:46] VITALS: BP 126/62
[2021-03-03] MEDS: TAMSULOSIN 0.4 MG (FLOMAX) CAP PO SCH (17:47)
[2021-03-03] MEDS: ENOXAPARIN 40 MG/0.4 ML (LOVENOX) SYR SC SCH (17:48)
[2021-03-03 20:56] VITALS: BP 119/62
--- NOTE | 2021-03-04 06:01 | PM&R Progress Note ---
Subjective HPI/CC On Admission Date Seen by Provider: Mar 04, 2021 Time Seen by Provider: 10:00 Subjective/Events-last exam 03/04/2021: Patient doing really well Moved into independent living room Patient set for discharge on Monday [facility] is his pharmacy Dr. Calvo is his primary care provider 03/03/2021: Pt doing pretty well Bowels are moving Took one more tab for the headache Balance is improved 03/02/2021: Pt is doing well Bowels are moving well Voiding well No pain is reported Home meds restarted Blood pressure stable Labs good Review of Systems General: Fatigue, Malaise Neurological: Weakness, Incoordination Objective Exam Vital Signs Vital Signs Date Time Temp Pulse Resp B/P (MAP) Pulse Ox O2 Delivery O2 Flow Rate FiO2 03/04/21 21:01 Room Air 03/04/21 19:37 36.6 74 20 142/75 (97) 03/04/21 08:00 97 Capillary Refill : General Appearance: No Apparent Distress, WD/WN, Chronically ill, Obese HEENT: PERRL/EOMI, Normal ENT Inspection, Pharynx Normal, Other (left peripheral vision loss) Neck: Full Range of Motion, Normal Inspection, Non Tender, Supple, Carotid B ruit Respiratory: Chest Non Tender, Lungs Clear, Normal Breath Sounds, No Accessory Muscle Use, No Respiratory Distress Cardiovascular: Regular Rate, Rhythm, No Edema, No Gallop, No JVD, No Murmur, Normal Peripheral Pulses Gastrointestinal: Normal Bowel Sounds, No Organomegaly, No Pulsatile Mass, Non Tender, Soft Back: Normal Inspection, No CVA Tenderness, No Vertebral Tenderness Extremity: Normal Capillary Refill, Normal Inspection, Normal Range of Motion, Non Tender, No Calf Tenderness, No Pedal Edema Neurologic/Psychiatric: Alert, Oriented x3, No Motor/Sensory Deficits, spring tester II- XII Norm as Tested, Abnormal Gait, Depressed Affect, Motor Weakness (generalized) Skin: Normal Color, Warm/Dry Lymphatic: No Adenopathy Results/Procedures Lab Patient resulted labs reviewed. FIM Transfers Therapy Code Descriptions/Definitions Functional [place] Measure: 0=Not Assessed/NA 4=Minimal Assistance 1=Total Assistance 5=Supervision or Setup 2=Maximal Assistance 6=Modified [place] 3=Moderate Assistance 7=Complete IndependenceSCALE: Activities may be completed with or without assistive devices. 2-Ctedpxdalo-mkeaabh completes the activity by him/herself with no assistance from a helper. 5-Set-up or Clean-up Assistance-helper sets up or cleans up; patient completes activity. [place] assists only prior to or following the activity. 4-Supervision or Touching Assistance-helper provides verbal cues and/or touching/steadying and/or contact guard assistance as patient completes activity. Assistance may be provided throughout the activity or intermittently. 3-Partial/Moderate Assistance-helper does LESS THAN HALF the effort. [place] lifts, holds or supports trunk or limbs, but provides less than half the effort. 2-Substantial/Maximal Assistance-helper does MORE THAN HALF the effort. [place] lifts or holds trunk or limbs and provides more than half the effort. 9-Txzcpqkef-wlrgxu does ALL the effort. Patient does none of the effort to complete the activity. Or, the assistance of 2 or more helpers is required for the patient to complete the activity. If activity was not attempted, code reason: 7-Patient Refused. 9-Not Applicable-not attempted and the patient did not perform the activity bef ore the current illness, exacerbation or injury. 10-Not Attempted due to Environmental Limitations-(lack of equipment, weather r estraints, etc.). 88-Not Attempted due to Medical Conditions or Safety Concerns. Roll Left to Right (QC): 6 Sit to Lying (QC): 6 Sit to Stand (QC): 6 Chair/Mdt-em-Hdjuv Xfer(QC): 6 Car Transfer (QC): 4 Gait Training Does the Patient Walk?: Yes Distance: 800', 120' Walk 10 feet (QC): 6 Walk 50 ft with 2 Turns(QC): 6 Walk 150 ft (QC): 6 Walking 10ft/uneven surface-QC: 4 Gait Persons Needed: 0 Gait Assistive Device: None Wheelchair Training Does the Pt Use a Wheelchair?: No Wheel 50 ft with 2 turns (QC): 9 Wheel 150 ft (QC): 9 Stair Training Stair Training: Handrails/: 1 handrail #of Steps: 12 1 Step (curb) (QC): 4 4 Steps (QC): 6 12 Steps (QC): 6 Stairs: Pattern: Reciprocal Balance Picking up an Object (QC): 4 ADL-Treatment Eating (QC): 6 (Per clinical judgment, independent.) Oral Hygiene (QC): 6 Shower/Bathe Self (QC): 4 (supervision) Upper Body Dressing (QC): 5 Lower Body Dressing (QC): 5 On/Off Footwear (QC): 5 Toileting Hygiene (QC): 4 Assessment/Plan Assessment and Plan Assess & Plan/Chief Complaint Assessment: Intracranial hemorrhage Hypertension Increased BMI of 38 BPH Left peripheral vision loss Fall risk due to imbalance Elevated liver enzymes Impaired fasting glucose Plan: Hypertension control Lovenox Monitor closely 03/02/2021: Supportive care Monitor blood pressure Fall risk 03/03/2021: Dramatic improvement in balance Supportive care 03/04/2021: Discharge on Monday Supportive care (1) ICH (intracerebral hemorrhage) ALEXA WEAVER DO Mar 04, 2021 06:01
[2021-03-04 08:00] VITALS: BP 119/62
[2021-03-04] MEDS: DOCUSATE SODIUM 100 MG (COLACE) CAP PO SCH ×2 (08:26→19:41)
[2021-03-04] MEDS: amLODIPine 10 MG (NORVASC) TAB PO SCH (08:26)
[2021-03-04] MEDS: lisINopril 10 MG (PRINIVIL) TABLET PO SCH ×2 (08:26→20:26)
[2021-03-04] MEDS: SENNA W/DOCUSATE (SENOKOT S) TABLET PO SCH ×2 (09:00→19:41)
[2021-03-04] MEDS: polyethylene glycoL POWDER 17 GM (MIRALAX) PACK PO SCH ×2 (09:00→19:41)
--- NOTE | 2021-03-04 09:10 | Occupational Ther Daily Note ---
OT Current Status-Daily Note Subjective Pt alert, sitting in recliner. Moved pt to 226 per nrsg request. Pt agrees to therapy. No c/o pain. Mental Status/Objective Patient Orientation: Person, Place, Time, Situation ADL-Treatment Pt agrees to shower. Pt able to gather supplies from his rm 223 and transport to rm 226 to take shower in tub/shower without AD. Pt completed tub/shower transfer by stepping in/out independently. Shower seat in shower for safety though only used it 10% of shower. Pt independent with shower, dressing, toileting, oral care and eating. Therapy Code Descriptions/Definitions Functional [place] Measure: 0=Not Assessed/NA 4=Minimal Assistance 1=Total Assistance 5=Supervision or Setup 2=Maximal Assistance 6=Modified [place] 3=Moderate Assistance 7=Complete IndependenceSCALE: Activities may be completed with or without assistive devices. 4-Lekieipfzx-sykwhkq completes the activity by him/herself with no assistance f rom a helper. 5-Set-up or Clean-up Assistance-helper sets up or cleans up; patient completes activity. [place] assists only prior to or following the activity. 4-Supervision or Touching Assistance-helper provides verbal cues and/or touching/steadying and/or contact guard assistance as patient completes activity. Assistance may be provided throughout the activity or intermittently. 3-Partial/Moderate Assistance-helper does LESS THAN HALF the effort. [place] lifts, holds or supports trunk or limbs, but provides less than half the effort. 2-Substantial/Maximal Assistance-helper does MORE THAN HALF the effort. [place] lifts or holds trunk or limbs and provides more than half the effort. 4-Nxelupysc-tnexpv does ALL the effort. Patient does none of the effort to complete the activity. Or, the assistance of 2 or more helpers is required for the patient to complete the activity. If activity was not attempted, code reason: 7-Patient Refused. 9-Not Applicable-not attempted and the patient did not perform the activity before the current illness, exacerbation or injury. 10-Not Attempted due to Environmental Limitations-(lack of equipment, weather restraints, etc.). 88-Not Attempted due to Medical Conditions or Safety Concerns. Eating (QC): 6 Oral Hygiene (QC): 6 Shower/Bathe Self (QC): 6 Upper Body Dressing (QC): 6 Lower Body Dressing (QC): 6 On/Off Footwear: 6 Toileting Hygiene (QC): 6 Toilet Transfer (QC): 6 Pt is aware of visual cut on L lower quadrant and scans environment with ambulating then reaches toward close items on L to assure safety. Pt completes B UE medium resistance theraband exercises (8 exercises) using HEP for guidance without assistance from [place]. After therapy, pt sitting in recliner with call light/phone in reach. All needs met in room. OT Short Term Goals Short Term Goals Time Frame: Mar 08, 2021 Eatin Oral hygiene: 6 Toileting hygiene: 6 Shower/bathe self: 4 Upper body dressin Lower body dressin Putting on/taking off footwear: 5 OT Brim Blocker Goals Brim Blocker Goals Time Frame: Mar 12, 2021 Eating (QC): 6 (met) Oral Hygiene (QC): 6 (met) Toileting Hygiene (QC): 6 (met) Shower/Bathe Self (QC): 6 (met) Upper Body Dressing (QC): 6 (met) Lower Body Dressing (QC): 6 (met) On/Off Footwear (QC): 6 (met) 1=Demonstrate adherence to instructed precautions during ADL tasks. 2=Patient will verbalize/demonstrate understanding of assistive devices/modifications for ADL. 3=Patient will improve strength/tolerance for activity to enable patient to perform ADL's. OT Education/Plan Problem List/Assessment Assessment: Visual-Perceptual Deficit Discharge Recommendations Plan/Recommendations: Continue POC Treatment Plan/Plan of Care Patient would benefit from OT for education, treatment and training to promote i ndependence in ADL's, mobility, safety and/or upper extremity function for ADL's. Plan of Care: ADL Retraining, Functional Mobility, Group Exercise/Act as Ind, UE Funct Exercise/Act, Visual/Perceptual Retrain Treatment Duration: Mar 12, 2021 Frequency: At least 5 of 7 days/Wk (IRF) Estimated Hrs Per Day: 1.5 hours per day Agreement: Yes Rehab Potential: Fair Time/GCodes Start Time: 07:30 Stop Time: 09:00 Total Time Billed (hr/min): 90 Billed Treatment Time 1 visit-ADL 4 (65 min) EX 1 (15 min) FA 1 (10 min) ROB CUI Mar 04, 2021 09:09
--- NOTE | 2021-03-04 11:23 | Physical Therapy Daily Note ---
PT Daily Note-Current Subjective Pt standing in room upon arrival. Pt agrees to PT. Pt feels ready for d/c on Monday. Pain Location: No Pain Reported Mental Status Patient Orientation: Person, Place, Time, Situation Transfers SCALE: Activities may be completed with or without assistive devices. 7-Edqsnltnwl-vnuqvki completes the activity by him/herself with no assistance from a helper. 5-Set-up or Clean-up Assistance-helper sets up or cleans up; patient completes activity. [place] assists only prior to or following the activity. 4-Supervision or Touching Assistance-helper provides verbal cues and/or [place] josse/steadying and/or contact guard assistance as patient completes activity. Assistance may be provided throughout the activity or intermittently. 3-Partial/Moderate Assistance-helper does LESS THAN HALF the effort. [place] lifts, holds or supports trunk or limbs, but provides less than half the effort. 2-Substantial/Maximal Assistance-helper does MORE THAN HALF the effort. [place] lifts or holds trunk or limbs and provides more than half the effort. 5-Fuohanlmo-yzdbdo does ALL the effort. Patient does none of the effort to complete the activity. Or, the assistance of 2 or more helpers is required for the patient to complete the activity. If activity was not attempted, code reason: 7-Patient Refused. 9-Not Applicable-not attempted and the patient did not perform the activity before the current illness, exacerbation or injury. 10-Not Attempted due to Environmental Limitations-(lack of equipment, weather restraints, etc.). 88-Not Attempted due to Medical Conditions or Safety Concerns. Roll Left & Right (QC): 6 Sit to Lying (QC): 6 Lying to Sitting/Side of Bed(Q: 6 Sit to Stand (QC): 6 Weight Bearing Full Weight Bearing Full Weight Bearing Gait Training Does the Patient Walk?: Yes Distance: 500', 150' Walk 10 feet (QC): 6 Walk 50 ft with 2 Turns(QC): 6 Walk 150 ft (QC): 6 Gait Persons Needed: 0 Gait Assistive Device: None EQUINE DENTIST encouraged pt to practice visual scanning aide. in Lower Left Quad. for discrepancies. Wheelchair Training Does the Pt Use a Wheelchair?: No Exercises Supine Ex: Ankle pumps, Quad Set, Glut sets, Heel Slides, Short Arc Quads, Straight leg raise, Hip abd/add Supine Reps: 15 Seated Therapy Exercises: Ankle pumps, Long arc quads, Hip flexion, Glut set Seated Reps: 15 Treatments [id number]: Pt declines need for BR. Amb. in hallway before taking RB. Pt then amb. in again in hallway focusing on looking in Lower Left Quad. and how to correct with discrepancies. Pt practices bed mobility and talks with EQUINE DENTIST about home set up and day to day task management. Pt given and reveiwed written HEP for both Supine & Seated Ex. pt resting at end of tx with all needs met, call light next to pt. [id number]: Pt sitting in recliner upon arrival. Pt declines need for BR and is Ad irene in room. Pt focuses on HEP given in morning and self correction on Lower Left Quad. Pt resting at end of tx with all needs met, call light in hand. Assessment Current Status: Good Progress Pt know how to scan to avoid discrepancies in Lower Left Quad. Pt has improved mobility and independence of tasks. PT Short Term Goals Short Term Goals Time Frame: Mar 08, 2021 Roll Left & Right: 6 Sit to lyin Lying to sitting on side of be: 6 Sit to stand: 4 (SBA) Chair/hnv-gf-fxsdw transfer: 4 (SBA) Walk 10 feet: 4 (SBA) Walk 50 feet with two turns: 4 (SBA) Walk 150 feet: 4 (SBA) PT Detention Goals Dredge Mechanic Goals PT Dredge Mechanic Goals Time Frame: Mar 22, 2021 Roll Left & Right (QC): 6 Sit to Lying (QC): 6 Lying-Sitting on Side/Bed(QC): 6 Sit to Stand (QC): 5 Chair/Lep-tq-Fjgsa Xfer(QC): 5 Toilet Transfer (QC): 5 Car Transfer (QC): 5 Does the Patient Walk: Yes Walk 10 feet (QC): 5 Walk 50ft with 2 Turns (QC): 5 Walk 150 ft (QC): 5 Walking 10ft on Uneven Surface: 5 1 Step (curb) (QC): 5 4 Steps (QC): 5 12 Steps (QC): 5 Picking up an Object (QC): 5 Wheel 50 feet with 2 turns (QC: 9 Wheel 150 feet: 9 PT Plan Treatment/Plan Treatment Plan: Continue Plan of Care Treatment Plan: Education, Functional Activity Fer, Functional Strength, Group Therapy, Gait, Safety, Therapeutic Exercise, Transfers Treatment Duration: Mar 22, 2021 Frequency: At least 5 of 7 days/Wk (IRF) Estimated Hrs Per Day: 1.5 hours per day Patient and/or Family Agrees t: Yes Safety Risks/Education Patient Education: Issued Written HEP, Safety Issues Teaching Recipient: Patient Teaching Methods: Discussion Response to Teaching: Verbalize Understanding Time/GCodes Time In: 915 Time Out: 1015 Total Billed Treatment Time: 60 Total Billed Treatment 915-1015: 1, GT x2 (30m), EX (20m) & FA (10m) [id number]: 1, EX (20m) & FA (10m) RENATA KNOWLES EQUINE DENTIST Mar 04, 2021 11:23
[2021-03-04 18:00] VITALS: BP 128/60
[2021-03-04] MEDS: TAMSULOSIN 0.4 MG (FLOMAX) CAP PO SCH (18:01)
[2021-03-04] MEDS: ENOXAPARIN 40 MG/0.4 ML (LOVENOX) SYR SC SCH (18:01)
[2021-03-04 19:37] VITALS: BP 142/75
--- NOTE | 2021-03-05 05:40 | PM&R Progress Note ---
Subjective HPI/CC On Admission Date Seen by Provider: Mar 05, 2021 Time Seen by Provider: 11:30 Subjective/Events-last exam 03/05/21: Pt doing well Up ad irene now Ready for discharge tomorrow Checked meds and labs No complaints 03/04/2021: Patient doing really well Moved into independent living room Patient set for discharge on Monday [facility] on and [facility] is his pharmacy Dr. Calvo is his primary care provider 03/03/2021: Pt doing pretty well Bowels are moving Took one more tab for the headache Balance is improved 03/02/2021: Pt is doing well Bowels are moving well Voiding well No pain is reported Home meds restarted Blood pressure stable Labs good Review of Systems General: Fatigue, Malaise Objective Exam Vital Signs Vital Signs Date Time Temp Pulse Resp B/P (MAP) Pulse Ox O2 Delivery O2 Flow Rate FiO2 03/05/21 21:33 95 Room Air 03/05/21 21:12 37.0 74 18 143/76 (98) Capillary Refill : General Appearance: No Apparent Distress, WD/WN, Chronically ill, Obese HEENT: PERRL/EOMI, Normal ENT Inspection, Pharynx Normal, Other (left peripheral vision loss) Neck: Full Range of Motion, Normal Inspection, Non Tender, Supple, Carotid Bruit Respiratory: Chest Non Tender, Lungs Clear, Normal Breath Sounds, No Accessory Muscle Use, No Respiratory Distress Cardiovascular: Regular Rate, Rhythm, No Edema, No Gallop, No JVD, No Murmur, Normal Peripheral Pulses Gastrointestinal: Normal Bowel Sounds, No Organomegaly, No Pulsatile Mass, Non Tender, Soft Back: Normal Inspection, No CVA Tenderness, No Vertebral Tenderness Extremity: Normal Capillary Refill, Normal Inspection, Normal Range of Motion, Non Tender, No Calf Tenderness, No Pedal Edema Neurologic/Psychiatric: Alert, Oriented x3, No Motor/Sensory Deficits, front desk agent II- XII Norm as Tested, Abnormal Gait, Depressed Affect, Motor Weakness (generalized) Skin: Normal Color, Warm/Dry Lymphatic: No Adenopathy Results/Procedures Lab Patient resulted labs reviewed. FIM Transfers Therapy Code Descriptions/Definitions Functional [place] Measure: 0=Not Assessed/NA 4=Minimal Assistance 1=Total Assistance 5=Supervision or Setup 2=Maximal Assistance 6=Modified [place] 3=Moderate Assistance 7=Complete IndependenceSCALE: Activities may be completed with or without assistive devices. 7-Comrhqtplc-fmsxgly completes the activity by him/herself with no assistance from a helper. 5-Set-up or Clean-up Assistance-helper sets up or cleans up; patient completes activity. [place] assists only prior to or following the activity. 4-Supervision or Touching Assistance-helper provides verbal cues and/or touching/steadying and/or contact guard assistance as patient completes activity. Assistance may be provided throughout the activity or intermittently. 3-Partial/Moderate Assistance-helper does LESS THAN HALF the effort. [place] lifts, holds or supports trunk or limbs, but provides less than half the effort. 2-Substantial/Maximal Assistance-helper does MORE THAN HALF the effort. [place] lifts or holds trunk or limbs and provides more than half the effort. 9-Uvyhsbatx-bhiffk does ALL the effort. Patient does none of the effort to complete the activity. Or, the assistance of 2 or more helpers is required for the patient to complete the activity. If activity was not attempted, code reason: 7-Patient Refused. 9-Not Applicable-not attempted and the patient did not perform the activity before the current illness, exacerbation or injury. 10-Not Attempted due to Environmental Limitations-(lack of equipment, weather restraints, etc.). 88-Not Attempted due to Medical Conditions or Safety Concerns. Roll Left to Right (QC): 6 Sit to Lying (QC): 6 Sit to Stand (QC): 6 Chair/Ont-kq-Vmhvy Xfer(QC): 6 Car Transfer (QC): 4 Gait Training Does the Patient Walk?: Yes Distance: 500', 150' Walk 10 feet (QC): 6 Walk 50 ft with 2 Turns(QC): 6 Walk 150 ft (QC): 6 Walking 10ft/uneven surface-QC: 4 Gait Persons Needed: 0 Gait Assistive Device: None Wheelchair Training Does the Pt Use a Wheelchair?: No Wheel 50 ft with 2 turns (QC): 9 Wheel 150 ft (QC): 9 Stair Training Stair Training: Handrails/: 1 handrail #of Steps: 12 1 Step (curb) (QC): 4 4 Steps (QC): 6 12 Steps (QC): 6 Stairs: Pattern: Reciprocal Balance Picking up an Object (QC): 4 ADL-Treatment Eating (QC): 6 Oral Hygiene (QC): 6 Shower/Bathe Self (QC): 6 Upper Body Dressing (QC): 6 Lower Body Dressing (QC): 6 On/Off Footwear (QC): 6 Toileting Hygiene (QC): 6 Toilet Transfer (QC): 6 Assessment/Plan Assessment and Plan Assess & Plan/Chief Complaint Assessment: Intracranial hemorrhage Hypertension Increased BMI of 38 BPH Left peripheral vision loss Fall risk due to imbalance Elevated liver enzymes Impaired fasting glucose Plan: Hypertension control Lovenox Monitor closely 03/02/2021: Supportive care Monitor blood pressure Fall risk 03/03/2021: Dramatic improvement in balance Supportive care 03/04/2021: Discharge on Monday Supportive care 03/05/21: DC tomorrow (1) ICH (intracerebral hemorrhage) ALEXA WEAVER DO Mar 05, 2021 05:40
[2021-03-05 08:02] VITALS: BP 112/67
--- NOTE | 2021-03-05 09:38 | Physical Therapy Daily Note ---
PT Daily Note-Current Subjective Patient in recliner pre tx, agrees to PT, has no complaints of pain. Appearance Patient in recliner post tx with nurse call, phone, tray, all needs met. Mental Status Patient Orientation: Normal For Age Transfers SCALE: Activities may be completed with or without assistive devices. 5-Ulalaidbpa-xvkahfa completes the activity by him/herself with no assistance from a helper. 5-Set-up or Clean-up Assistance-helper sets up or cleans up; patient completes activity. [place] assists only prior to or following the activity. 4-Supervision or Touching Assistance-helper provides verbal cues and/or touching/steadying and/or contact guard assistance as patient completes activity. Assistance may be provided throughout the activity or intermittently. 3-Partial/Moderate Assistance-helper does LESS THAN HALF the effort. [place] lifts, holds or supports trunk or limbs, but provides less than half the effort. 2-Substantial/Maximal Assistance-helper does MORE THAN HALF the effort. [place] lifts or holds trunk or limbs and provides more than half the effort. 8-Gjbaxqzld-snvvtq does ALL the effort. Patient does none of the effort to complete the activity. Or, the assistance of 2 or more helpers is required for the patient to complete the activity. If activity was not attempted, code reason: 7-Patient Refused. 9-Not Applicable-not attempted and the patient did not perform the activity before the current illness, exacerbation or injury. 10-Not Attempted due to Environmental Limitations-(lack of equipment, weather restraints, etc.). 88-Not Attempted due to Medical Conditions or Safety Concerns. Roll Left & Right (QC): 6 Sit to Lying (QC): 6 Lying to Sitting/Side of Bed(Q: 6 Sit to Stand (QC): 6 Chair/Inr-xj-Ifopx Xfer(QC): 6 Toilet Transfer (QC): 6 Car Transfer (QC): 6 Patient performs rolling and supine <-> sit with independence, sit <-> stand and transfers with independence, car transfer independent. Patient has safe transfers and good hand placement and positioning. Weight Bearing Full Weight Bearing Full Weight Bearing Gait Training Distance: 800', 150'x2 Walk 10 feet (QC): 6 Walk 50 ft with 2 Turns(QC): 6 Walk 150 ft (QC): 6 Walking 10ft/uneven surface-QC: 6 Gait Assistive Device: None Patient can ambulate over 800' without an assistive device with independence (including 50' with at least 2 turns of 90 degrees and 10' over an uneven surface) Wheelchair Training Wheel 50 ft with 2 turns (QC): 9 Wheel 150 ft (QC): 9 Stair Training Stair Training: Handrails/: 1 handrail #of Steps: 12 1 Step (curb) (QC): 6 4 Steps (QC): 6 12 Steps (QC): 6 Stairs: Pattern: Reciprocal Patient can go up and down 12 steps using 1 handrail with independence. Balance Picking up an Object (QC): 6 Exercises NuStep Minutes: 20 NuStep Workload: 4 Neuromuscular Patient scored a 53/56 on the Reeves Balance Scale Treatments bed mobility and transfers, ambulation, stair training, gait training, functional strengthening Assessment Current Status: Fair Progress Patient is now independent with mobility. He says his vision has improved but still has some decreased peripheral vision on the left side. PT Short Term Goals Short Term Goals Time Frame: Mar 08, 2021 Roll Left & Right: 6 Sit to lyin Lying to sitting on side of be: 6 Sit to stand: 4 (SBA) Chair/pzs-qj-tvpew transfer: 4 (SBA) Walk 10 feet: 4 (SBA) Walk 50 feet with two turns: 4 (SBA) Walk 150 feet: 4 (SBA) PT Intermediate Goals Automatic Driller And Reamer Goals PT Intermediate Goals Time Frame: Mar 22, 2021 Roll Left & Right (QC): 6 Sit to Lying (QC): 6 Lying-Sitting on Side/Bed(QC): 6 Sit to Stand (QC): 5 Chair/Dpf-ac-Wcuhb Xfer(QC): 5 Toilet Transfer (QC): 5 Car Transfer (QC): 5 Does the Patient Walk: Yes Walk 10 feet (QC): 5 Walk 50ft with 2 Turns (QC): 5 Walk 150 ft (QC): 5 Walking 10ft on Uneven Surface: 5 1 Step (curb) (QC): 5 4 Steps (QC): 5 12 Steps (QC): 5 Picking up an Object (QC): 5 Wheel 50 feet with 2 turns (QC: 9 Wheel 150 feet: 9 PT Plan Problem List Problem List: Activity Tolerance, Functional Strength, Safety, Balance, Gait, Transfer, ROM Treatment/Plan Treatment Plan: Continue Plan of Care Treatment Plan: Education, Functional Activity Fer, Functional Strength, Group Therapy, Gait, Safety, Therapeutic Exercise, Transfers Treatment Duration: Mar 22, 2021 Frequency: At least 5 of 7 days/Wk (IRF) Estimated Hrs Per Day: 1.5 hours per day Patient and/or Family Agrees t: Yes Safety Risks/Education Patient Education: Gait Training, Transfer Techniques, Steps, Correct Positioning, Safety Issues Teaching Recipient: Patient Teaching Methods: Demonstration, Discussion Response to Teaching: Reinforcement Needed Time/GCodes Time In: 844 Time Out: 944 Total Billed Treatment Time: 60 Total Billed Treatment 1 visit EX 20' FA 40' RICARDO DYKES PT Mar 05, 2021 09:38
[2021-03-05] MEDS: amLODIPine 10 MG (NORVASC) TAB PO SCH (09:40)
[2021-03-05] MEDS: lisINopril 10 MG (PRINIVIL) TABLET PO SCH ×2 (09:40→21:11)
[2021-03-05] MEDS: SENNA W/DOCUSATE (SENOKOT S) TABLET PO SCH ×2 (09:41→21:12)
[2021-03-05] MEDS: DOCUSATE SODIUM 100 MG (COLACE) CAP PO SCH ×2 (09:41→21:12)
[2021-03-05] MEDS: polyethylene glycoL POWDER 17 GM (MIRALAX) PACK PO SCH ×2 (09:41→21:12)
--- NOTE | 2021-03-05 11:05 | Physical Therapy Daily Note ---
PT Daily Note-Current Subjective Patient in recliner pre tx, agrees to PT, has no complaints of pain. Will be co-treating with OT for part of tx to work on higher level balance activities. Appearance Patient in therapy gym post tx to continue with OT Mental Status Patient Orientation: Normal For Age Transfers SCALE: Activities may be completed with or without assistive devices. 3-Liniqilgrf-xdsbexc completes the activity by him/herself with no assistance from a helper. 5-Set-up or Clean-up Assistance-helper sets up or cleans up; patient completes activity. [place] assists only prior to or following the activity. 4-Supervision or Touching Assistance-helper provides verbal cues and/or touching/steadying and/or contact guard assistance as patient completes act ivity. Assistance may be provided throughout the activity or intermittently. 3-Partial/Moderate Assistance-helper does LESS THAN HALF the effort. [place] lifts, holds or supports trunk or limbs, but provides less than half the effort. 2-Substantial/Maximal Assistance-helper does MORE THAN HALF the effort. [place] lifts or holds trunk or limbs and provides more than half the effort. 9-Fhuaqyytt-illtms does ALL the effort. Patient does none of the effort to complete the activity. Or, the assistance of 2 or more helpers is required for the patient to complete the activity. If activity was not attempted, code reason: 7-Patient Refused. 9-Not Applicable-not attempted and the patient did not perform the activity before the current illness, exacerbation or injury. 10-Not Attempted due to Environmental Limitations-(lack of equipment, weather restraints, etc.). 88-Not Attempted due to Medical Conditions or Safety Concerns. Sit to Stand (QC): 6 Chair/Nnz-rn-Kyrby Xfer(QC): 6 Weight Bearing Full Weight Bearing Full Weight Bearing Gait Training Distance: 1000' Walk 10 feet (QC): 6 Walk 50 ft with 2 Turns(QC): 6 Walk 150 ft (QC): 6 Gait Assistive Device: None independent ambulation, no SOB after ambulation Neuromuscular balance activities standing and throwing ball, bouncing ball, kicking ball Treatments transfers and ambulation, balance training Assessment Current Status: Fair Progress patient had some near LOB during balance training but was able to recover on his own PT Short Term Goals Short Term Goals Time Frame: Mar 08, 2021 Roll Left & Right: 6 Sit to lyin Lying to sitting on side of be: 6 Sit to stand: 4 (SBA) Chair/elr-hl-bjeof transfer: 4 (SBA) Walk 10 feet: 4 (SBA) Walk 50 feet with two turns: 4 (SBA) Walk 150 feet: 4 (SBA) PT Halfway Goals Police Commanding Officer Goals PT Halfway Goals Time Frame: Mar 22, 2021 Roll Left & Right (QC): 6 Sit to Lying (QC): 6 Lying-Sitting on Side/Bed(QC): 6 Sit to Stand (QC): 5 Chair/Ilj-vn-Vgizz Xfer(QC): 5 Toilet Transfer (QC): 5 Car Transfer (QC): 5 Does the Patient Walk: Yes Walk 10 feet (QC): 5 Walk 50ft with 2 Turns (QC): 5 Walk 150 ft (QC): 5 Walking 10ft on Uneven Surface: 5 1 Step (curb) (QC): 5 4 Steps (QC): 5 12 Steps (QC): 5 Picking up an Object (QC): 5 Wheel 50 feet with 2 turns (QC: 9 Wheel 150 feet: 9 PT Plan Problem List Problem List: Activity Tolerance, Functional Strength, Safety, Balance, Gait, Transfer Treatment/Plan Treatment Plan: Continue Plan of Care Treatment Plan: Education, Functional Activity Fer, Functional Strength, Group Therapy, Gait, Safety, Therapeutic Exercise, Transfers Treatment Duration: Mar 22, 2021 Frequency: At least 5 of 7 days/Wk (IRF) Estimated Hrs Per Day: 1.5 hours per day Patient and/or Family Agrees t: Yes Safety Risks/Education Patient Education: Gait Training, Transfer Techniques, Correct Positioning, Safety Issues Teaching Recipient: Patient Teaching Methods: Demonstration, Discussion Response to Teaching: Reinforcement Needed Time/GCodes Time In: 1035 Time Out: 1105 Total Billed Treatment Time: 30 Total Billed Treatment 1 visit GT 10' NM 20' co-treated from [id number] RICARDO DYKES PT Mar 05, 2021 11:05
[2021-03-05] MEDS ORDERED: LISI10TA25 PO (11:55)
[2021-03-05] MEDS ORDERED: AMLO-251 PO (11:55)
[2021-03-05] MEDS ORDERED: CARV12.53 PO (11:55)
[2021-03-05] MEDS ORDERED: MECL-149 PO (11:55)
[2021-03-05] MEDS ORDERED: TMSL.4C PO (11:55)
--- NOTE | 2021-03-05 12:10 | Occupational Ther Daily Note ---
OT Current Status-Daily Note Subjective Pt working with PT. Co-treat with PT for part of tx to work on higher level balance activities. No c/o pain. Mental Status/Objective Patient Orientation: Person, Place, Time, Situation ADL-Treatment Pt is up ad irene in room. At end of session, pt's lunch was served and pt completed own set up and used regular utensils to eat. After session, pt sitting in recliner with call light/phone in reach. All needs met in room. Therapy Code Descriptions/Definitions Functional [place] Measure: 0=Not Assessed/NA 4=Minimal Assistance 1=Total Assistance 5=Supervision or Setup 2=Maximal Assistance 6=Modified [place] 3=Moderate Assistance 7=Complete IndependenceSCALE: Activities may be completed with or without assistive devices. 5-Jnvkstziuh-uohjfhd completes the activity by him/herself with no assistance from a helper. 5-Set-up or Clean-up Assistance-helper sets up or cleans up; patient completes activity. [place] assists only prior to or following the activity. 4-Supervision or Touching Assistance-helper provides verbal cues and/or touching/steadying and/or contact guard assistance as patient completes activity. Assistance may be provided throughout the activity or intermittently. 3-Partial/Moderate Assistance-helper does LESS THAN HALF the effort. [place] lifts, holds or supports trunk or limbs, but provides less than half the effort. 2-Substantial/Maximal Assistance-helper does MORE THAN HALF the effort. [place] lifts or holds trunk or limbs and provides more than half the effort. 8-Hlwezilwl-dmqaim does ALL the effort. Patient does none of the effort to complete the activity. Or, the assistance of 2 or more helpers is required for the patient to complete the activity. If activity was not attempted, code reason: 7-Patient Refused. 9-Not Applicable-not attempted and the patient did not perform the activity before the current illness, exacerbation or injury. 10-Not Attempted due to Environmental Limitations-(lack of equipment, weather restraints, etc.). 88-Not Attempted due to Medical Conditions or Safety Concerns. Eating (QC): 6 Other Treatment PT/OT focusing on balance and B UE/LE stabilization during higher level balance tasks. Per PT report during co-treatment, pt had some near LOB during balance training but was able to recover on his own. PT then left pt in care of OT. Pt working on B UE strengthening and fine motor dexterity for daily functional ta sks. UE arm bike for 15 min at 25 pelaez resistance completed. Wrist flex, ext, rad/uln dev exercises with 2# wt 3 sets 10 reps. Then working with medium resistance theraputty, pt found 14 bead then completed multiple exercises for lpn rn and pinch strengthening. OT Short Term Goals Short Term Goals Time Frame: Mar 08, 2021 Eatin Oral hygiene: 6 Toileting hygiene: 6 Shower/bathe self: 4 Upper body dressin Lower body dressin Putting on/taking off footwear: 5 OT Aircraft Powerplant Repairer Goals Long-Term Goals Time Frame: Mar 12, 2021 Eating (QC): 6 (met) Oral Hygiene (QC): 6 (met) Toileting Hygiene (QC): 6 (met) Shower/Bathe Self (QC): 6 (met) Upper Body Dressing (QC): 6 (met) Lower Body Dressing (QC): 6 (met) On/Off Footwear (QC): 6 (met) 1=Demonstrate adherence to instructed precautions during ADL tasks. 2=Patient will verbalize/demonstrate understanding of assistive devic es/modifications for ADL. 3=Patient will improve strength/tolerance for activity to enable patient to perform ADL's. OT Education/Plan Problem List/Assessment Assessment: Decreased Activ Tolerance, Decreased UE Strength Discharge Recommendations Plan/Recommendations: Continue POC Treatment Plan/Plan of Care Patient would benefit from OT for education, treatment and training to promote independence in ADL's, mobility, safety and/or upper extremity function for ADL's. Plan of Care: ADL Retraining, Functional Mobility, Group Exercise/Act as Ind, UE Funct Exercise/Act, Visual/Perceptual Retrain Treatment Duration: Mar 12, 2021 Frequency: At least 5 of 7 days/Wk (IRF) Estimated Hrs Per Day: 1.5 hours per day Agreement: Yes Rehab Potential: Fair Time/GCodes Start Time: 10:45 Stop Time: 12:15 Total Time Billed (hr/min): 90 Billed Treatment Time 1 visit-EX 5 (75 min) ADL 1 (15 min) co-treat with PT [id number], individual [id number] ROB CUI Mar 05, 2021 12:10
[2021-03-05] MEDS: ENOXAPARIN 40 MG/0.4 ML (LOVENOX) SYR SC SCH (18:16)
[2021-03-05] MEDS: TAMSULOSIN 0.4 MG (FLOMAX) CAP PO SCH (18:16)
[2021-03-05 18:24] VITALS: BP 141/69
[2021-03-05 21:12] VITALS: BP 143/76
[2021-03-06] MEDS: HYDROcodone/APAP 5 MG/325 MG (LORTAB) TAB PO PRN ×2 (04:08→07:40)
--- NOTE | 2021-03-06 05:41 | Discharge Summary ---
Diagnosis/Chief Complaint Date of Admission Mar 01, 2021 at 14:53 Date of Discharge Discharge Date: Mar 06, 2021 Discharge Diagnosis Assessment: Intracranial hemorrhage Hypertension Increased BMI of 38 BPH Left peripheral vision loss Fall risk due to imbalance Elevated liver enzymes Impaired fasting glucose Plan: Hypertension control Lovenox Monitor closely 03/02/2021: Supportive care Monitor blood pressure Fall risk 03/03/2021: Dramatic improvement in balance Supportive care 03/04/2021: Discharge on Monday Supportive care 03/05/21: DC tomorrow (1) ICH (intracerebral hemorrhage) Discharge Summary Discharge Physical Examination Allergies: Coded Allergies: No Known Drug Allergies (Unverified , 03/01/21) Vitals & I&Os Vital Signs Date Time Temp Pulse Resp B/P (MAP) Pulse Ox O2 Delivery O2 Flow Rate FiO2 03/06/21 09:59 36.8 71 22 124/80 99 Room Air General Appearance: Alert, Oriented X3, Cooperative Respiratory: Clear to Auscultation Cardiovascular: Regular Rate Neuro: Normal Gait, Normal Speech, Strength at 5/5 X4 Ext Psych/Mental Status: Mental Status NL Hospital Course Was the Problem List Reviewed?: Yes Brief hospital course after admitted from [facility] after ICH. Patient was able to ambulate and perform ADL's with assisted devices and ultimately without AD. Patient remained stable and labs and bowel function were normal and patient was deemed stable for DC. Labs (last 24 hrs) Laboratory Tests 03/02/21 05:28: White Blood Count 8.1, Red Blood Count 5.02, Hemoglobin 14.5, Hematocrit 44, Mean Corpuscular Volume 87, Mean Corpuscular Hemoglobin 29, Mean Corpuscular Hemoglobin Concent 33, Red Cell Distribution Width 12.8, Platelet Count 274, Mean Platelet Volume 10.1, Immature Granulocyte % (Auto) 1, Neutrophils (%) (Auto) 58, Lymphocytes (%) (Auto) 25, Monocytes (%) (Auto) 12, Eosinophils (%) (Auto) 4, Basophils (%) (Auto) 1, Neutrophils # (Auto) 4.7, Lymphocytes # (Auto) 2.0, Monocytes # (Auto) 1.0, Eosinophils # (Auto) 0.3, Basophils # (Auto) 0.1, Immature Granulocyte # (Auto) 0.1, Sodium Level 135, Potassium Level 4.0, Chloride Level 103, Carbon Dioxide Level 21, Anion Gap 11, Blood Urea Nitrogen 19H, Creatinine 1.21, Estimat Glomerular Filtration Rate 66, BUN/Creatinine Ratio 16, Glucose Level 120H, Calcium Level 8.9, Corrected Calcium 9.2, Total Bilirubin 0.5, Aspartate Amino Transf (AST/SGOT) 51H, Alanine Aminotransferase (ALT/SGPT) 76H, Alkaline Phosphatase 88, Total Protein 6.9, Albumin 3.6 Pending Labs Laboratory Tests 03/02/21 05:28: White Blood Count 8.1, Red Blood Count 5.02, Hemoglobin 14.5, Hematocrit 44, Mean Corpuscular Volume 87, Mean Corpuscular Hemoglobin 29, Mean Corpuscular Hemoglobin Concent 33, Red Cell Distribution Width 12.8, Platelet Count 274, Mean Platelet Volume 10.1, Immature Granulocyte % (Auto) 1, Neutrophils (%) (Auto) 58, Lymphocytes (%) (Auto) 25, Monocytes (%) (Auto) 12, Eosinophils (%) (Auto) 4, Basophils (%) (Auto) 1, Neutrophils # (Auto) 4.7, Lymphocytes # (Auto) 2.0, Monocytes # (Auto) 1.0, Eosinophils # (Auto) 0.3, Basophils # (Auto) 0.1, Immature Granulocyte # (Auto) 0.1, Sodium Level 135, Potassium Level 4.0, Chloride Level 103, Carbon Dioxide Level 21, Anion Gap 11, Blood Urea Nitrogen 19, Creatinine 1.21, Estimat Glomerular Filtration Rate 66, BUN/Creatinine Ratio 16, Glucose Level 120, Calcium Level 8.9, Corrected Calcium 9.2, Total Bilirubin 0.5, Aspartate Amino Transf (AST/SGOT) 51, Alanine Aminotransferase (ALT/SGPT) 76, Alkaline Phosphatase 88, Total Protein 6.9, Albumin 3.6 Discharge Home Medications: Active Scripts Active Meclizine HCl 25 Mg Tablet 25 Mg PO TID PRN Lisinopril 10 Mg Tablet 10 Mg PO BID Amlodipine Besylate 10 Mg Tablet 10 Mg PO DAILY Carvedilol 12.5 Mg Tablet 25 Mg PO BID WITH MEALS Flomax (Tamsulosin HCl) 0.4 Mg Cap 0.4 Mg PO DAILY@1800 Instructions to patient/family Please see electronic discharge instructions given to patient. Diagnosis/Problems Diagnosis/Problems (1) ICH (intracerebral hemorrhage) ALEXA WEAVER DO Mar 06, 2021 05:41
[2021-03-06 07:11] VITALS: BP 124/80
[2021-03-06] MEDS: lisINopril 10 MG (PRINIVIL) TABLET PO SCH (07:41)
[2021-03-06] MEDS: amLODIPine 10 MG (NORVASC) TAB PO SCH (07:41)
[2021-03-06 09:59] VITALS: BP 124/80
--- NOTE | 2021-03-08 09:41 | Therapy Team Discharge Summary ---
Therapy Discharge Summary Discharge Recommendations Date of Discharge Mar 06, 2021 at 09:59 Physical Therapy Current Status: Fair Progress Patient is now independent with mobility. He says his vision has improved but still has some decreased peripheral vision on the left side. Transfers Roll Left & Right (QC): 6 Sit to Lying (QC): 6 Lying to Sitting/Side of Bed(Q: 6 Sit to Stand (QC): 6 Chair/Mov-uw-Rzuya Xfer(QC): 6 Toilet Transfer (QC): 6 Car Transfer (QC): 6 Patient performs rolling and supine <-> sit with independence, sit <-> stand and transfers with independence, car transfer independent. Patient has safe transfers and good hand placement and positioning. Gait Training Distance: 800', 150'x2 Walk 10 feet (QC): 6 Walk 50 ft with 2 Turns(QC): 6 Walk 150 ft (QC): 6 Walking 10ft/uneven surface-QC: 6 Gait Assistive Device: None Patient can ambulate over 800' without an assistive device with independence (including 50' with at least 2 turns of 90 degrees and 10' over an uneven surface) Wheelchair Training Wheel 50 ft with 2 turns (QC): 9 Wheel 150 ft (QC): 9 Stair Training Stair Training: Handrails/: 1 handrail #of Steps: 12 1 Step (curb) (QC): 6 4 Steps (QC): 6 12 Steps (QC): 6 Stairs: Pattern: Reciprocal Patient can go up and down 12 steps using 1 handrail with independence. Balance Picking up an Object (QC): 6 Exercises NuStep Minutes: 20 NuStep Workload: 4 Neuromuscular Patient scored a 53/56 on the Reeves Balance Scale Occupational Therapy Decreased Activ Tolerance, Decreased UE Strength PT [facility] Goals Fci Goals PT [facility] Goals Time Frame: Mar 22, 2021 Roll Left to Right (QC): 6 Sit to Lying (QC): 6 Lying-Sitting on Side/Bed(QC): 6 Sit to Stand (QC): 5 Chair/Kuj-go-Jrqas Xfer(QC): 5 Car Transfer (QC): 5 Does the Patient Walk: Yes Walk 10 feet (QC): 5 Walk 10ft-Uneven Surface(QC): 5 Walk 50ft with 2 Turns (QC): 5 Walk 150 ft (QC): 5 Wheel 50 feet with 2 turns (QC: 9 1 Step (curb) (QC): 5 4 Steps (QC): 5 12 Steps (QC): 5 Picking up an Object (QC): 5 OT [facility]ci Goals Project Management Manager Goals Time Frame: Mar 12, 2021 Eating (QC): 6 (met) Oral Hygiene (QC): 6 (met) Shower/Bathe Self (QC): 6 (met) Upper Body Dressing (QC): 6 (met) Lower Body Dressing (QC): 6 (met) On/Off Footwear (QC): 6 (met) Toileting Hygiene (QC): 6 (met) Toilet/Commode Transfer (QC): 5 1=Demonstrate adherence to instructed precautions during ADL tasks. 2=Patient will verbalize/demonstrate understanding of assistive devices/modifications for ADL. 3=Patient will improve strength/tolerance for activity to enable patient to perform ADL's. CAROLE COMBS PT Mar 08, 2021 09:41
--- NOTE | 2021-03-08 14:30 | Therapy Team Discharge Summary ---
Therapy Discharge Summary Discharge Recommendations Date of Discharge Mar 06, 2021 at 09:59 Occupational Therapy Pt admitted to ARU s/p [facility]. At PLOF, pt was independent with I/ADLs and funct ional mobility without AD. Upon initial evaluation, pt required set up assistance with eating and oral care, supervision with showering, set up upper body dressing, CGA lower body dressing, SBA footwear and toileting. OT txs focused on increasing BUE strength and activity tolerance, and increasing independence with ADLs and functional mobility. At discharge pt was independent with all ADLs, meeting all LTGs. Pt discharged from facility, d/c from OT. Decreased Activ Tolerance, Decreased UE Strength PT Manager Case Management Goals Manager Case Management Goals PT [facility] Goals Time Frame: Mar 22, 2021 Roll Left to Right (QC): 6 Sit to Lying (QC): 6 Lying-Sitting on Side/Bed(QC): 6 Sit to Stand (QC): 5 Chair/Rvq-rg-Xkaue Xfer(QC): 5 Car Transfer (QC): 5 Does the Patient Walk: Yes Walk 10 feet (QC): 5 Walk 10ft-Uneven Surface(QC): 5 Walk 50ft with 2 Turns (QC): 5 Walk 150 ft (QC): 5 Wheel 50 feet with 2 turns (QC: 9 1 Step (curb) (QC): 5 4 Steps (QC): 5 12 Steps (QC): 5 Picking up an Object (QC): 5 OT Mcc Goals Manager Case Management Goals Time Frame: Mar 12, 2021 Eating (QC): 6 (met) Oral Hygiene (QC): 6 (met) Shower/Bathe Self (QC): 6 (met) Upper Body Dressing (QC): 6 (met) Lower Body Dressing (QC): 6 (met) On/Off Footwear (QC): 6 (met) Toileting Hygiene (QC): 6 (met) Toilet/Commode Transfer (QC): 5 1=Demonstrate adherence to instructed precautions during ADL tasks. 2=Patient will verbalize/demonstrate understanding of assistive devices/mo difications for ADL. 3=Patient will improve strength/tolerance for activity to enable patient to perform ADL's. TANK PRO OT Mar 08, 2021 14:30
== END 2021-03-06 09:59 | disposition home or self-care (01) | DRG 57 ==
PROVIDERS: ADMIT Internal Medicine; ATTEND Internal Medicine
DX: I69.298 Other sequelae of other nontraumatic intracranial hemorrhage (principal); H54.62 Unqualified visual loss, left eye, normal vision right eye; R26.89 Other abnormalities of gait and mobility; I10 Essential (primary) hypertension; Z91.14 Patient's other noncompliance with medication regimen; I48.91 Unspecified atrial fibrillation; K59.00 Constipation, unspecified; E78.00 Pure hypercholesterolemia, unspecified; N40.0 Benign prostatic hyperplasia without lower urinary tract symptoms; R74.8 Abnormal levels of other serum enzymes; R73.01 Impaired fasting glucose; Z23 Encounter for immunization
CPT/HCPCS: 36415; 80053; 85025